=== PATIENT | female | born 1965 | race Caucasian/White ===

== ENCOUNTER 2017-06-06 12:55 | Inpatient (IN) | payer OTHER ==
[~2017-06-06] VITALS: Ht 160 cm; Wt 91.2 kg
[2017-06-06] MEDS ORDERED: ATIVAN1 M1 PO (13:08)
[2017-06-06] MEDS ORDERED: BENICAR HCT 201 EACH PO (13:08)
[2017-06-06] MEDS ORDERED: ATORVASTATIN CA20 M1 PO (13:09)
[2017-06-06] MEDS ORDERED: AMOXICILLIN500 M2 PO (13:10)
[2017-06-06] MEDS ORDERED: AUGMENTIN 875-1 EACH PO (13:11)
[2017-06-06] MEDS ORDERED: METFORMIN HCL500 M4 PO (13:12)
--- NOTE | 2017-06-06 13:12 | ED GENERAL ADULT ---
History of Present Illness General Chief Complaint: General Adult Stated Complaint: SIB FOR HIGH BLOODSUGAR Source: patient Exam Limitations: no limitations Vital Signs & Intake/Output Vital Signs & Intake/Output Vital Signs Date Time Temp Pulse Resp B/P B/P Pulse O2 O2 Flow FiO2 Mean Ox Delivery Rate 06/06 1723 97.1 85 20 102/52 97 Room Air 06/06 1704 97.7 89 18 98/53 100 Room Air 06/06 1550 96 20 132/60 100 Room Air 06/06 1501 98.0 95 20 139/67 100 Room Air 06/06 1257 97.8 108 20 119/80 94 Room Air Room Air Allergies Coded Allergies: No Known Allergies (06/06/17) Reconcile Medications Amoxicillin 500 MG CAPSULE 1 CAP PO AD ABX (Reported) Amoxicillin/Potassium Clav (Augmentin 875-125 Tablet) 875 MG-125 MG TABLET 1 TAB PO AD ABX (Reported) Atorvastatin Calcium 20 MG TABLET 1 TAB PO DAILY CHOLESTEROL (Reported) LORazepam (Ativan) 1 MG TAB 0.5 TAB PO QAM ANXIETY (Reported) Metformin HCl (Metformin HCl ER) 500 MG TAB.ER.24H 1 TAB PO QPM DM (Reported) Olmesartan/Hydrochlorothiazide (Benicar Hct 20-12.5 MG Tablet) 20 MG-12.5 MG TABLET 1 TAB PO DAILY BP (Reported) Triage Note: PT TO ED WITH HIGH BLOOD SUGARS, TAKES METFORMIN 500MG DAILY "SOMETIMES I FORGET". PT RECENTLY DIAGNOSED WITH STREP THROAT TAKING AMOXICILLIN "I STOPPED TAKING IT BECAUSE IT WAS BOTHERING MY STOMACH". ACCUCHECK AT TRIAGE: >500 Triage Nurses Notes Reviewed? yes Onset: Gradual Duration: getting worse Timing: recent history Injury Environment: home Severity: severe Severity Numbers: 7 HPI: Patient is a 51-year-old female with a past medical history of diabetes hypertension anxiety who presents emergency room with concerns of noncompliance WITH metformin and elevated blood sugar where patient states that yesterday blood sugar was noted to be over 500 patient has been complaining of a one-week history of generalized weakness and fatigue increased thirst headaches blurred vision and shortness of breath. Patient does state that earlier this week she was diagnosed with strep PHAR where she was given amoxicillin however patient had upset stomach and diarrhea with this medication and only took the medication for approximately 2-3 days, throat still is hurting per patient. Patient has symptoms of persistent nausea and intermittent episodes of vomiting (Blu Vivar) Past History Travel History Traveled to [place] past 21 day No Medical History Any Pertinent Medical History? 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 No (Blu Vivar) Review of Systems Review of Systems Constitutional: Reports: see HPI, malaise, weakness. EENTM: Reports: blurred vision. Respiratory: Reports: see HPI, short of breath. Cardiovascular: Denies: chest pain. GI: Reports: see HPI, nausea, vomiting. Denies: abdominal pain. Genitourinary: Reports: see HPI. Musculoskeletal: Reports: no symptoms. Skin: Reports: no symptoms. Neurological/Psychological: Reports: see HPI. Hematologic/Endocrine: Reports: see HPI, polyuria, polydipsia. Immunologic/Allergic: Reports: no symptoms. All Other Systems: Reviewed and Negative (Blu Vivar) Physical Exam Physical Exam General Appearance: no apparent distress, lethargic Head: atraumatic Eyes: Bilateral: normal appearance, PERRL, EOMI. Ears, Nose, Throat: pharyngeal erythema, tonsillar exudate, tonsillar swelling Neck: normal inspection Respiratory: normal breath sounds Cardiovascular: regular rate/rhythm Peripheral Pulses: 2+ radial (R) Gastrointestinal: normal bowel sounds, soft, non-tender Extremities: normal inspection, normal capillary refill Skin: intact, normal color, warm/dry Core Measures ACS in differential dx? Yes CVA/TIA Diagnosis: No Sepsis Present: No Sepsis Focused Exam Completed? No (Blu Vivar) Progress Differential Diagnoses I considered the following diagnoses in my evaluation of the patient: [DKA, HHS, hyperglycemia pharyngitis peritonsillar abscess sepsis polysubstance abuse] Plan of Care: Orders Procedure Date/time Status Lab Add-on Test 06/07 050 Active THYROID STIMULATING HORMONE 06/07 050 Active LIPID PANEL 06/07 050 Active ICU LAB BUNDLE 06/07 0500 Active FREE T4 06/07 0500 Active C-PEPTIDE Ref$ 06/07 0500 Active CBC WITHOUT DIFFERENTIAL 06/07 0500 Active THYROID ANTIBODY PANEL 06/07 0500 Active ICU LAB BUNDLE 06/07 0005 Active Nothing by Mouth 06/06 D Active Nursing Misc 06/06 1749 Active Wound Care/Dressing 06/06 1721 Complete Weight 06/06 1721 Active VTE Mechanical Prophylaxis 06/06 1721 Complete Vital Signs 06/06 1721 Complete Turn and Reposition 06/06 1721 Complete Drains/Tubes 06/06 1721 Complete Teach/Educate 06/06 1721 Active Skin Integrity Protocol 06/06 1721 Active Skin/Pressure Ulcer Assess (Sk 06/06 1721 Active Precautions 06/06 1721 Active Pain Treatment and Response 06/06 1721 Active Nutritional Intake, Monitor 06/06 1721 Active Isolation 06/06 1721 Active CIWA 06/06 1721 Complete Patient Care Conference 06/06 1721 Active Activity/Ambulation 06/06 1721 Active ICU LAB BUNDLE 06/06 1709 Complete VRE ACTIVE SURVIELLANCE 06/06 1700 Active ACTIVE SURVEILLANCE NARES 06/06 1700 Active LACTIC ACID 06/06 1617 Complete Pathway - chart 06/06 1516 Active House Staff 06/06 1516 Active Code Status 06/06 1516 Active Admit to inpatient 06/06 1456 Active Patient Data 06/06 1455 Active Add-on Test (ER Only) 06/06 1341 Active GLYCOSYLATED HGB 06/06 1329 Active MIXED VENOUS BLOOD GAS (GEN) 06/06 1317 Active URINE DRUG SCREEN FOR ER ONLY 06/06 1317 Active URINALYSIS 06/06 1317 Complete TROPONIN LEVEL 06/06 1317 Active LACTIC ACID 06/06 1317 Active D-DIMER 06/06 1317 Complete COMPREHENSIVE METABOLIC PANEL 06/06 1317 Active CBC WITHOUT DIFFERENTIAL 06/06 1317 Complete ACETONE 06/06 1317 Active EKG 06/06 1317 Active FingerStick- Glucose 06/06 1300 Active Lab Add-on Test 06/06 UNK Active VTE Mechanical Prophylaxis 06/06 UNK Active Vital Signs 06/06 UNK Active Intake & Output 06/06 UNK Active Current Medications Sig/[place] Start time Last Medication Dose Stop Time Status Admin Lorazepam 0.5 MG QAM 06/07 1000 AC (Ativan) Losartan Potassium 50 MG DAILY 04/02 1000 AC (Cozaar) Heparin Sodium 5,000 UNIT Q8 06/06 2200 AC (Porcine) Sodium Chloride 1,000 ML Q6H 06/06 1800 AC 06/06 (Normal Saline 0.9%) 1814 Acetaminophen 1,000 MG Q6P PRN 06/06 1515 AC (Ofirmev) Laboratory Tests 06/06/17 1745: Methadone Screen Pending, Barbiturate Screen Pending, Ur Phencyclidine Scrn Pending, Amphetamines Screen Pending, U Benzodiazepines Scrn Pending, Urine Cocaine Screen Pending, Urine Cannabis Screen Pending, Urinalysis LIGHT H, Urine Color YEL, Urine Clarity CLEAR, Urine pH 6.0, Ur Specific Holden 1.025, Urine Protein 100 H, Urine Ketones >=80, Urine Nitrite NEG, Urine Bilirubin NEG @ICTO, Urine Urobilinogen 0.2, Ur Leukocyte Esterase NEG, Ur Microscopic SEDIMENT EXAMINED, Urine RBC 3-5, Urine WBC 3-5 H, Ur Epithelial Cells MANY H, Urine Bacteria MANY H, Hyaline Casts 5-10 H, Granular Casts RARE H, Urine Mucus MANY H, Urine Hemoglobin MOD H, Urine Glucose >=1000 H 06/06/17 1700: Anion Gap 25 H, Estimated GFR 47 L, Glucose 410 H, Calcium 9.0, Phosphorus 2.6, Magnesium 2.3, Total Bilirubin 0.5, AST 19, ALT 71 H, Albumin 3.5 06/06/17 1640: Lactic Acid 1.7 06/06/17 1420: Bicarbonate Actual 6 L, Mixed VBG pH 7.01 L, Mixed VBG pCO2 22 L, Mixed VBG O2 Saturation 39, Carboxyhemoglobin 1.4 L 06/06/17 1403: D-Dimer High Sensitivty 229 06/06/17 1345: D-Dimer High Sensitivty Cancelled 06/06/17 1329: Anion Gap ND, Estimated GFR 28 L, BUN/Creatinine Ratio 16.3, Glucose 691 *H, Hemoglobin A1c Pending, Lactic Acid 3.4 H, Calcium 10.4 H, Total Bilirubin 0.7 , AST 32, ALT 91 H, Alkaline Phosphatase 143 H, Troponin I < 0.01, Total Protein 7.6, Albumin 4.6, Globulin 3.0, Albumin/Globulin Ratio 1.5, CBC w Diff MAN DIFF ORDERED, RBC 5.25, MCV 96.8, MCH 32.0 H, MCHC 33.1, RDW 13.4, MPV 10.3 , Gran % 85.0 H, Lymphocytes % 8.9 L, Monocytes % 5.9, Eosinophils % 0, Basophils % 0.2, Absolute Granulocytes 10.7 H, Absolute Lymphocytes 1.1 L, Absolute Monocytes 0.7 H, Absolute Eosinophils 0, Absolute Basophils 0, Platelet Estimate VERIFIED BY SMEAR, Normocytic RBCs VERIFIED, Normochromic RBCs VERIFIED, Acetone Level POSITIVE AT 1:16 DIL Microbiology 06/06 1745 GI: Surveillance Culture - RECD 06/06 171 UPPER RESP: Surveillance Culture - RECD Initial glucose reading by nursing staff fingerstick was over 500 IV fluids ordered ministered IV insulin was administered Patient was given azithromycin due to her noncompliance with the amoxicillin and the perceived strep pharyngitis diagnosis patient does have concerns of DKA patient was administered IV insulin fluid resuscitation and a insulin drip. Discussed admission with Dr. weller was aware and agrees that 6 ML of insulin per hour for the drip. Patient will be admitted to the ICU. Discussed admission with who is well spoke to the attending Discussed admission with the patient Diagnostic Imaging: Viewed by Me: Radiology Read, CT Scan. Radiology Impression: no acute abnormality Initial ED EKG: normal QRS complex, normal sinus rhythm, 96 bpm,nsr Comments: PATIENT: JOSEF POLO PRESENT AGE: 51 PATIENT ACCOUNT NO: [id number] : 65 LOCATION: [facility] ORDERING PHYSICIAN: Blu VELAZQUEZ SERVICE DATE: 06/06/17 EXAM TYPE: RAD - XRY-PORTABLE CHEST XRAY EXAMINATION: XR PORTABLE CHEST CLINICAL INFORMATION: Shortness of breath. COMPARISON: None TECHNIQUE: Portable frontal view of the chest was obtained. FINDINGS: The cardiomediastinal silhouette is within normal limits in size. Lungs bilaterally are symmetrically expanded and clear. Lobulation of both hemidiaphragms is seen. No focal consolidation, effusion or pneumothorax is seen. Bony structures are unremarkable. IMPRESSION: Unremarkable examination. DICTATED BY: Dee Roy MD DATE/TIME DICTATED:06/06/171642 PUPPET MAKER:JESSE PATIENT: JOSEF POLO PRESENT AGE: 51 PATIENT ACCOUNT NO: [id number] : 65 LOCATION: [facility] ORDERING PHYSICIAN: Blu VELAZQUEZ SERVICE DATE: 06/06/17 EXAM TYPE: CAT - CT ABD & PELVIS W/O IV CONTRAS EXAMINATION: CT ABDOMEN AND PELVIS WITHOUT CONTRAST CLINICAL INFORMATION: 51-year-old woman with nausea and vomiting. COMPARISON: None TECHNIQUE: Multidetector volumetric imaging was performed from the superior aspect of the liver through the pubic symphysis. Sagittal and coronal reformatted images were obtained on the technologist's workstation. DLP: 656 mGy-cm FINDINGS: The lung bases are clear. The liver, spleen, pancreas, adrenals, and kidneys are normal in their noncontrast appearance. The partially contracted gallbladder is filled with hyperdense material, presumably sludge. Nondilated loops of large and small bowel are unremarkable in appearance. The appendix and terminal ileum are not inflamed. The uterus, adnexal structures, and bladder are normal in appearance. IMPRESSION: No acute intra-abdominal process is seen to explain the patient's symptoms. Probable sludge filled gallbladder. DICTATED BY: Sepideh Mancilla MD DATE/TIME DICTATED:06/06/171552 PUPPET MAKER:JESSE (Blu Vivar) Departure Departure Disposition: STILL A PATIENT Condition: Critical Clinical Impression Primary Impression: DKA (diabetic ketoacidoses) Secondary Impressions: ROBERTA (acute kidney injury), Streptococcal pharyngitis Departure Forms: Customer Survey General Discharge Information Admission Note Spoke With: Sil WETZEL,Amialberto Documentation of Exam: Documentation of any treatments & extenuating circumstances including Concerns Regarding Discharge (functional status, medication knowledge or non-compliance, living conditions, etc.) that warrant an admission rather than observation: (Blu Vivar) Admission Note Documentation of Exam: Documentation of any treatments & extenuating circumstances including Concerns Regarding Discharge (functional status, medication knowledge or non-compliance, living conditions, etc.) that warrant an admission rather than observation: [The patient needs admission for ICU level care, insulin drip, endocrinology consult, IV fluids.] PA/APPLICATION ANALYST Co-Sign Statement Statement: ED Attending supervision documentation- [x] I saw and evaluated the patient. I have also reviewed all the pertinent lab results and diagnostic results. I agree with the findings and the plan of care as documented in the PA's/APPLICATION ANALYST's documentation. [] I have reviewed the ED Record and agree with the PA's/APPLICATION ANALYST's documentation. [] Additions or exceptions (if any) to the PAs/APPLICATION ANALYST's note and plan are summarized below: [] 06/06/17 I saw and personally evaluated the patient. She is a 51-year-old female with a history of adult-onset diabetes. Now she presents with several days of first a sore throat and then vomiting. She was found to be in profound diabetic ketoacidosis. She denies any abdominal pain. I spoke with Dr. Rodriguez who can be reached at [phone] (Sebastian Garcia DO) Critical Care Note Critical Care Note Critical Care Time: 75-104 min (Ema VELAZQUEZ,Blu)
[2017-06-06 13:42] LABS: ABSOLUTE BASOPHIL COUNT 0 /CUMM (0.0-0.2); ABSOLUTE EOSINOPHIL COUNT 0 /CUMM (0.0-0.7); ABSOLUTE GRANULOCYTE CT 10.7 /CUMM (1.4-6.5); ABSOLUTE LYMPH COUNT 1.1 /CUMM (1.2-3.4); ABSOLUTE MONOCYTE COUNT 0.7 /CUMM (0.10-0.60); BASOPHIL % 0.2 % (0.0-2.0); EOSINOPHIL % 0 % (0-5); HEMATOCRIT 50.8 % (37-47); MEAN CORPUSCULAR HGB CONC 33.1 G/DL (33.0-37.0); MEAN CORPUSCULAR VOLUME 96.8 FL (81.0-99.0); MEAN PLATELET VOLUME 10.3 FL (7.4-10.4); PLATELET COUNT 322 /CUMM (130-400); RBC DISTRIBUTION WIDTH 13.4 % (11.5-14.5); RED BLOOD CELL CT 5.25 /CUMM (4.20-5.40); WHITE BLOOD CELL COUNT 12.6 /CUMM (4.8-10.8)
--- NOTE | 2017-06-06 15:00 | History & Physical ---
Vianey WETZEL,Daniel 06/06/17 4809: General Information and HPI MD Statement: I have seen and personally examined JOSEF POLO and documented this H&P. The patient is a 51 year old F who was referred by her doctor for DKA. Source of Information: patient Exam Limitations: no limitations History of Present Illness: 51-year-old female with past medical history of diabetes (non-compliant), ? abnormal thyroid hormones, hypertension, anxiety, currently being treated for streptococcal pharyngitis with amoxicillin is here after recording high blood sugar levels at home. According to the patient, in the past few days (Wednesday) she was having sore throat and was diagnosed with streptococcal pharyngitis, initially being treated with Augmentin, which upset her stomach- heartburn, nausea but no vomiting, which was later suggested to amoxicillin which she did NOT take. She noted being very thirsty this past week and was drinking water a lot more than usual. She also admitted that she was noncompliant with her diabetes medication which is metformin. Her blood sugar numbers were more than 500 yesterday, and she continued to feel worsening of her symptoms, that brought her to the emergency department today. She still has throat, pain on swallowing, but no hoarseness of voice. She denies fever, chills, chest pain, palpitation, shortness of breath, cough, leg swelling, dizziness, abdominal pain, changes in bowel or bladder habit although she said she got some yeast infection after starting the antibiotic for which she took a dose of Diflucan. Update obtained from the patient's doctor Pepe Marques MD over phone: Patient's doctor had called us after the admission, to get an update about the patient's situation as well as to provide more information. According to the doctor, the patient was in her usual state of health until afternoon, when she was working a long day and towards the end of the day she complained of sore throat, was examined to have acute pustular pharyngitis, and was prescribed amoxicillin clavulanate, which she apparently took it that night, Wednesday, and on Wednesday night he got a call from her saying that the patient was nauseous, had low appetite, and her sugar was 521 at which point he had asked the patient to go to the emergency. Patient apparently had refused according to the doctor, giving reasons that Mary was coming. But today, her blood sugar was still very high, thus she had to come to the emergency department. He also requested blood cultures and urine cultures be drawn even though she had been exposed to antibiotics, as "she is not a poorly controlled diabetic or someone who would otherwise get DKA". 1830 hrs Allergies/Medications Allergies: Coded Allergies: No Known Allergies (06/06/17) Home Med list Amoxicillin 500 MG CAPSULE 1 CAP PO AD ABX (Reported) Amoxicillin/Potassium Clav (Augmentin 875-125 Tablet) 875 MG-125 MG TABLET 1 TAB PO AD ABX (Reported) Atorvastatin Calcium 20 MG TABLET 1 TAB PO DAILY CHOLESTEROL (Reported) LORazepam (Ativan) 1 MG TAB 0.5 TAB PO QAM ANXIETY (Reported) Metformin HCl (Metformin HCl ER) 500 MG TAB.ER.24H 1 TAB PO QPM DM (Reported) Olmesartan/Hydrochlorothiazide (Benicar Hct 20-12.5 MG Tablet) 20 MG-12.5 MG TABLET 1 TAB PO DAILY BP (Reported) Compliance With Home Meds: POOR Past History Travel History Traveled to [place] past 21 day No Medical History Neurological: NONE EENT: NONE Cardiovascular: hypertension Respiratory: NONE Gastrointestinal: NONE Hepatic: NONE Renal: NONE Musculoskeletal: NONE Psychiatric: anxiety Endocrine: diabetes Blood Disorders: NONE 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 Home Who Do You Live With? spouse Services at Home: None Primary Language: Mongolian ETOH Use: denies use Illicit Drug Use: denies illicit drug use Functional Ability ADLs Independent: dressing, eating, toileting, bathing. Ambulation: independent IADLs Independent: shopping, housework, finances, food prep, telephone, transportation , medication admin. Review of Systems Review of Systems Constitutional: Reports: see HPI. EENTM: Reports: see HPI, throat pain. Cardiovascular: Reports: no symptoms. Respiratory: Reports: no symptoms. GI: Reports: see HPI, nausea, vomiting. Denies: abdominal pain. Genitourinary: Reports: no symptoms. Musculoskeletal: Reports: no symptoms. Skin: Reports: no symptoms. Neurological/Psychological: Reports: no symptoms. Hematologic/Endocrine: Reports: no symptoms. All Other Systems: Reviewed and Negative Exam & Diagnostic Data Last 24 Hrs of Vital Signs/I&O Vital Signs Date Time Temp Pulse Resp B/P B/P Pulse O2 O2 Flow FiO2 Mean Ox Delivery Rate 06/06 1257 97.8 108 20 119/80 94 Room Air Room Air Intake & Output 06/06 1600 06/06 0800 06/06 0000 Intake Total 2000 Output Total Balance 2000 Intake, IV 2000 Patient 86.183 kg Weight Weight Reported by Patient Measurement Method Physical Exam General Appearance Alert, Oriented X3, Cooperative, No Acute Distress, obese Skin No Rashes, No Breakdown, No Significant Lesion Skin Temp/Moisture Exam: Warm/Dry Sepsis Skin Exam (color): Normal for Ethnicity HEENT Atraumatic, PERRLA, EOMI, dry mucosa Neck Supple, No JVD, No thryomegaly Cardiovascular Regular Rate, Normal S1, Normal S2, No Murmurs Neurological Normal Speech, Strength at 5/5 X4 Ext, Normal Tone, Sensation Intact, Cranial Nerves 3-12 NL, Reflexes 2+, gait not examined Sepsis Peripheral Pulse Location: Posterior Tibialis Sepsis Peripheral Pulse Exam: Normal Sepsis Cap Refill Exam: <2 Sec Last 24 Hrs of Labs/Zack: Laboratory Tests 06/06/17 1420: Bicarbonate Actual 6 L, Mixed VBG pH 7.01 L, Mixed VBG pCO2 22 L, Mixed VBG O2 Saturation 39, Carboxyhemoglobin 1.4 L 06/06/17 1403: D-Dimer High Sensitivty 229 06/06/17 1345: D-Dimer High Sensitivty Cancelled 06/06/17 1329: Anion Gap ND, Estimated GFR 28 L, BUN/Creatinine Ratio 16.3, Glucose 691 *H, Lactic Acid 3.4 H, Calcium 10.4 H, Total Bilirubin 0.7, AST 32, ALT 91 H, Alkaline Phosphatase 143 H, Troponin I < 0.01, Total Protein 7.6, Albumin 4.6, Globulin 3.0, Albumin/Globulin Ratio 1.5, CBC w Diff MAN DIFF ORDERED, RBC 5.25, MCV 96.8, MCH 32.0 H, MCHC 33.1, RDW 13.4, MPV 10.3, Gran % 85.0 H, Lymphocytes % 8.9 L, Monocytes % 5.9, Eosinophils % 0, Basophils % 0.2, Absolute Granulocytes 10.7 H, Absolute Lymphocytes 1.1 L, Absolute Monocytes 0.7 H, Absolute Eosinophils 0, Absolute Basophils 0, Platelet Estimate VERIFIED BY SMEAR, Normocytic RBCs VERIFIED, Normochromic RBCs VERIFIED, Acetone Level POSITIVE AT 1:16 DIL Assessment/Plan Assessment: 51-year-old female with past medical history of diabetes (non-compliant), ? abnormal thyroid hormones, hypertension, anxiety, currently being treated for streptococcal pharyngitis with amoxicillin is here after recording high blood sugar levels at home. She was found to be in diabetic ketoacidosis in the emergency department, thus the initial plan/protocol was already started while in the ED. She is now currently being admitted in the ICU for management of following issues: #Diabetic ketoacidosis, in the setting of non-compliance and acute infection Patient's diabetes seems to be uncontrolled, andis noncompliant, and in the setting of acute infection/pharyngitis, her clinical picture is suggestive of diabetic ketoacidosis. She received 3 L of normal saline in the emergency department, the third bag running currently. She also has been receiving insulin and normal saline infusion. * ICU admission * Regular close monitoring of vitals, urine output, symptoms * Continue insulin infusion for now until sugar level is less than 250 * Will change her insulin drip to subcutaneous insulin while allowing her to eat after that * We'll check her HbA1c today and insulin autoantibody tomorrow * Na is high so IV fluid of choice is half NS, and since K is low now so KCl has been added too. HCO3 is getting better, so will not supplement for now. #Hypernatremia, likely due to dehydration Normally with hyperglycemia, she will do hyponatremia is expected, but as in this case, likely due to dehydration the patient is presenting with hypernatremia, thus she will be allowed to have free water by mouth initially, and when her sugar level reaches less than 250 Will also be repeated in the form of D5W. #Abnormal thyroid functions, ruling out autoimmune conditions Patient had recently found out that her thyroid functions were abnormal in January 2017, along with her diagnosis of diabetes, but does not remember the type of abnormality ordered results of her test either. * Tomorrow morning, we will repeat her thyroid function test, thyroid antibodies * We will also check for C-peptide, and SHERI 65 levels in the morning #History of hypertension Will continue her antihypertensive medications while watching her blood pressure closely. HCTZ on hold for now, can restart if necessary. #History of anxiety Will continue her antianxiety medications. #Nicotine patch 7mg daily, as patient is a daily smoker and was having cravings. #Diet: Can have free water only, formally NPO ordered #DVT ppx: SQ Heparin #Code status: Full code As Ranked By This Provider Problem List: 1. DKA (diabetic ketoacidoses) 2. Hypernatremia Core Measures/Misc (11/22) Acute Coronary Syndrome ACS Diagnosis: No Congestive Heart Failure Congestive Heart Failure Diagnosis No Cerebrovascular Accident CVA/TIA Diagnosis: No VTE (View Protocol) VTE Risk Factors Age>40 No Mechanical VTE Prophylaxis d/t N/A MechProphylax Ordered No VTE Pharm Prophylaxis d/t NA PharmProphylax ordered Sepsis (View protocol) Sepsis Present: No Sil WETZEL,[facility] 06/07/17 0745: Attending MD Review Statement Attending Statement Attending MD Statement: examined this patient, discuss w/resident/PA/HEAD GRINDER, agreed w/resident/PA/HEAD GRINDER, reviewed EMR data (avail), discussed with nursing Attending Assessment/Plan: Case discussed with the team, agree with A/P as oulined by the resident. Appreicate endo eval. Pt will likely need regular outpt follow up appt
--- NOTE | 2017-06-06 15:59 | CT SCAN REPORT ---
EXAMINATION: CT ABDOMEN AND PELVIS WITHOUT CONTRAST CLINICAL INFORMATION: 51-year-old woman with nausea and vomiting. COMPARISON: None TECHNIQUE: Multidetector volumetric imaging was performed from the superior aspect of the liver through the pubic symphysis. Sagittal and coronal reformatted images were obtained on the technologist's workstation. DLP: 656 mGy-cm FINDINGS: The lung bases are clear. The liver, spleen, pancreas, adrenals, and kidneys are normal in their noncontrast appearance. The partially contracted gallbladder is filled with hyperdense material, presumably sludge. Nondilated loops of large and small bowel are unremarkable in appearance. The appendix and terminal ileum are not inflamed. The uterus, adnexal structures, and bladder are normal in appearance. IMPRESSION: No acute intra-abdominal process is seen to explain the patient's symptoms. Probable sludge filled gallbladder.
--- NOTE | 2017-06-06 16:52 | Admission Certification ---
Admission Certification Certification Statement - As attending physician, I certify that at the time of - admission, based on clinical presentation, severity of - symptoms, need for further diagnostic testing and - therapeutic interventions, and risk of adverse outcomes - without in-hospital treatment, in my clinical assessment, - this patient requires an acute hospital stay for a minimum - of two nights or longer. I have also considered psychsocial - factors such as support system, advanced age, financial - issues, cognitive issues, and failed out-patient treatments, - past re-admission history, safety of patient, and lack of - compliance as applicable. Specific rationale supporting this admission is: DKA
--- NOTE | 2017-06-06 17:06 | RADIOLOGY REPORT ---
EXAMINATION: XR PORTABLE CHEST CLINICAL INFORMATION: Shortness of breath. COMPARISON: None TECHNIQUE: Portable frontal view of the chest was obtained. FINDINGS: The cardiomediastinal silhouette is within normal limits in size. Lungs bilaterally are symmetrically expanded and clear. Lobulation of both hemidiaphragms is seen. No focal consolidation, effusion or pneumothorax is seen. Bony structures are unremarkable. IMPRESSION: Unremarkable examination.
[2017-06-06 17:23] VITALS: BP 102/52
--- NOTE | 2017-06-06 18:31 | Event Note ---
Event Note Event Note: I spoke with Dr Wilkes regarding the repeat lab values with sodium of 151, potassium 3.5, bicarbonate 9, blood sugar by fingerstick method 350, for which she suggested replacing the current IV fluid from normal saline to half normal saline with additional 20 meq potassium chloride running at 150 mL per hour. Also to repeat ICU bundle in 3 hours, and the rest as planned earlier, that is, continue with IV insulin drip at 6 units per hour, and change IV insulin drip to subcutaneous form after the blood sugar reaches 250 or lower and/or anion gap closes. Meds ordered as discussed and nursing staff notified too.
--- NOTE | 2017-06-06 21:55 | Cons- Endocrinology ---
General Information and HPI Consulting Request Date of Consult: 06/06/17 Requested By: ICU team Reason for Consult: Evaluation and management of DKA. Source of Information: patient, old records Exam Limitations: no limitations History of Present Illness: 51 y/o female who was diagnosed with DM type 2 and abnormal TFT in 01/2017, was prescribed with metfomin. But she hasn't been compliance with the treatment, presented with glucose level of 691, Cr 1.9, HCO2 < 5, PH 7.01 and acetone positive at 1:16 dilution. She was having URI over past several days and was treated with antibiotics. She was put on NS bolus and iv insulin drip at 6 units per hour. Patient feels thirsty and would like to drink ice water. Her father has diabetes and has been on oral antidiabetic medications. Allergies/Medications Allergies: Coded Allergies: No Known Allergies (06/06/17) Home Med List: Amoxicillin 500 MG CAPSULE 1 CAP PO AD ABX (Reported) Amoxicillin/Potassium Clav (Augmentin 875-125 Tablet) 875 MG-125 MG TABLET 1 TAB PO AD ABX (Reported) Atorvastatin Calcium 20 MG TABLET 1 TAB PO DAILY CHOLESTEROL (Reported) LORazepam (Ativan) 1 MG TAB 0.5 TAB PO QAM ANXIETY (Reported) Metformin HCl (Metformin HCl ER) 500 MG TAB.ER.24H 1 TAB PO QPM DM (Reported) Olmesartan/Hydrochlorothiazide (Benicar Hct 20-12.5 MG Tablet) 20 MG-12.5 MG TABLET 1 TAB PO DAILY BP (Reported) Review of Systems Review of Systems Constitutional: Reports: see HPI, malaise, weakness. Cardiovascular: Denies: chest pain. Respiratory: Denies: short of breath. GI: Denies: abdominal pain. Genitourinary: Reports: dysuria, frequency. Hematologic/Endocrine: Reports: polyuria, polydipsia. 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 Home Who Do You Live With? spouse Services at Home: None Primary Language: Brazilian Smoking Status: Current Everyday Smoker ETOH Use: denies use Illicit Drug Use: denies illicit drug use Functional Ability ADLs Independent: dressing, eating, toileting, bathing. Ambulation: independent IADLs Independent: shopping, housework, finances, food prep, telephone, transportation , medication admin. Exam & Diagnostic Data Last 24 Hrs of Vital Signs/I&O Vital Signs Date Time Temp Pulse Resp B/P B/P Pulse O2 O2 Flow FiO2 Mean Ox Delivery Rate 06/06 1723 97.1 85 20 102/52 97 Room Air 06/06 1704 97.7 89 18 98/53 100 Room Air 06/06 1550 96 20 132/60 100 Room Air 06/06 1501 98.0 95 20 139/67 100 Room Air 06/06 1257 97.8 108 20 119/80 94 Room Air Room Air Intake & Output 06/06 1600 06/06 0800 06/06 0000 Intake Total 2000 Output Total Balance 2000 Intake, IV 2000 Patient 190 lb Weight Weight Reported by Patient Measurement Method Physical Exam General Appearance: cachetic, dry oral mucosa Neck: normal inspection, no significant thyromegaly Respiratory: lungs clear Cardiovascular: tachycardia Gastrointestinal: soft, non-tender Extremities: no edema Labs/Zack Results: Laboratory Tests 06/06 06/06 06/06 06/06 2120 1745 1700 1640 Chemistry Sodium (137 - 145 mmol/L) 150 H 151 H Potassium (3.5 - 5.1 mmol/L) 3.8 3.6 Chloride (98 - 107 mmol/L) 120 H 117 H Carbon Dioxide (22 - 30 mmol/L) 11 L 9 *L Anion Gap (5 - 16) 18 H 25 H BUN (7 - 17 mg/dL) 33 H 32 H Creatinine (0.5 - 1.0 mg/dL) 0.9 1.2 H Estimated GFR (>60 ml/min) > 60 47 L Glucose (65 - 99 mg/dL) 223 H 410 H Lactic Acid (0.7 - 2.1 mmol/L) 1.7 Calcium (8.4 - 10.2 mg/dL) 8.3 L 9.0 Phosphorus (2.5 - 4.5 mg/dL) 2.0 L 2.6 Magnesium (1.6 - 2.3 mg/dL) 2.1 2.3 Total Bilirubin (0.2 - 1.3 mg/dL) 0.5 0.5 AST (14 - 36 U/L) 14 19 ALT (9 - 52 U/L) 65 H 71 H Albumin (3.5 - 5.0 g/dL) 2.8 L 3.5 Toxicology Urine Opiates Screen (>2000 NG/ML) < 100 Methadone Screen (>300 NG/ML) < 40 Barbiturate Screen (>200 NG/ML) < 60 Ur Phencyclidine Scrn (>25 NG/ML) < 6.00 Amphetamines Screen (>1000 NG/ML) < 100 U Benzodiazepines Scrn (>200 NG/ML) < 85 Urine Cocaine Screen (>300 NG/ML) < 50 Urine Cannabis Screen (>50 NG/ML) < 5.00 Urines Urinalysis LIGHT H Urine Color (YEL,AMB,STR) YEL Urine Clarity (CLEAR) CLEAR Urine pH (5.0 - 8.0) 6.0 Ur Specific [place]o (1.001 - 1.035) 1.025 Urine Protein (NEG,<30 MG/DL) 100 H Urine Ketones (NEG) >=80 Urine Nitrite (NEG) NEG Urine Bilirubin (NEG) NEG@ICTO Urine Urobilinogen (0.1 - 1.0 EU/dl) 0.2 Ur Leukocyte Esterase (NEG) NEG Ur Microscopic SEDIMENT EXAMINED Urine RBC (0 - 5 /HPF) 3-5 Urine WBC (0 - 2 /HPF) 3-5 H Ur Epithelial Cells (NONE,FEW) MANY H Urine Bacteria (NEG/NONE) MANY H Hyaline Casts (0/LPF) 5-10 H Granular Casts (NONE /LPF) RARE H Urine Mucus (FEW,NONE) MANY H Urine Hemoglobin (NEG) MOD H Urine Glucose (N MG/DL) >=1000 H 06/06 06/06 06/06 1420 1403 1345 Blood Gas Bicarbonate Actual (22 - 26 MEQ/L) 6 L Mixed VBG pH (7.31 - 7.41 PH) 7.01 L Mixed VBG pCO2 (41 - 51 TORR) 22 L Mixed VBG O2 Saturation (35 - 45 TORR) 39 Carboxyhemoglobin (1.5 - 5.0 %) 1.4 L Coagulation D-Dimer High Sensitivty (0 - 243 ng/ml) 229 Cancelled 06/06 1329 Chemistry Sodium (137 - 145 mmol/L) 147 H Potassium (3.5 - 5.1 mmol/L) 4.5 Chloride (98 - 107 mmol/L) 105 Carbon Dioxide (22 - 30 mmol/L) < 5 *L Anion Gap (5 - 16) ND BUN (7 - 17 mg/dL) 31 H Creatinine (0.5 - 1.0 mg/dL) 1.9 H Estimated GFR (>60 ml/min) 28 L BUN/Creatinine Ratio (7 - 25 %) 16.3 Glucose (65 - 99 mg/dL) 691 *H Hemoglobin A1c (4.2 - 5.8 %) Pending Lactic Acid (0.7 - 2.1 mmol/L) 3.4 H Calcium (8.4 - 10.2 mg/dL) 10.4 H Total Bilirubin (0.2 - 1.3 mg/dL) 0.7 AST (14 - 36 U/L) 32 ALT (9 - 52 U/L) 91 H Alkaline Phosphatase (<127 U/L) 143 H Troponin I (< 0.11 ng/ml) < 0.01 Total Protein (6.3 - 8.2 g/dL) 7.6 Albumin (3.5 - 5.0 g/dL) 4.6 Globulin (1.9 - 4.2 gm/dL) 3.0 Albumin/Globulin Ratio (1.1 - 2.2 %) 1.5 Hematology CBC w Diff MAN DIFF ORDERED WBC (4.8 - 10.8 /CUMM) 12.6 H RBC (4.20 - 5.40 /CUMM) 5.25 Hgb (12.0 - 16.0 G/DL) 16.8 H Hct (37 - 47 %) 50.8 H MCV (81.0 - 99.0 FL) 96.8 MCH (27.0 - 31.0 PG) 32.0 H MCHC (33.0 - 37.0 G/DL) 33.1 RDW (11.5 - 14.5 %) 13.4 Plt Count (130 - 400 /CUMM) 322 MPV (7.4 - 10.4 FL) 10.3 Gran % (42.2 - 75.2 %) 85.0 H Lymphocytes % (20.5 - 51.1 %) 8.9 L Monocytes % (1.7 - 9.3 %) 5.9 Eosinophils % (0 - 5 %) 0 Basophils % (0.0 - 2.0 %) 0.2 Absolute Granulocytes (1.4 - 6.5 /CUMM) 10.7 H Absolute Lymphocytes (1.2 - 3.4 /CUMM) 1.1 L Absolute Monocytes (0.10 - 0.60 /CUMM) 0.7 H Absolute Eosinophils (0.0 - 0.7 /CUMM) 0 Absolute Basophils (0.0 - 0.2 /CUMM) 0 Platelet Estimate (ADEQUATE) VERIFIED BY SMEAR Normocytic RBCs VERIFIED Normochromic RBCs VERIFIED Toxicology Acetone Level (NEGATIVE) POSITIVE AT 1:16 DIL Assessment/Plan Assessment/Plan 51 y/o female who was diagnosed with DM type 2 and abnormal TFT in 01/2017, was prescribed with metfomin. But she hasn't been compliance with the treatment, was having URI over past several days and was treated with antibiotics, and presented with DKA with glucose level of 691, Cr 1.9, HCO2 < 5, PH 7.01 and acetone positive at 1:16 dilution. Plan: 1. continue insulin drip; monitor FSG every one hour; 2. as her glucose level has been less than 250 and sodium is 150, I will change IVF to D51/2 NS with 20 KCL at 150 ml per hour; 3. encourage drinking more water; 4. monitor elecatrolytes every 3-6 hours; then adjust her IVF accordingly; 5. monitor IN and OUT; 6. check glucose, SHERI 65 antibody and C-peptide level tomorrow morning; 7. check TFT and thyroid antibody panel tomorrow am as well. any questions, please feel free to contact me. will follow. Consult Acknowledgment - Thank you for your consult request.
[2017-06-07] VITALS: BP 90/48
[2017-06-07 04:19] LABS: ABSOLUTE BASOPHIL COUNT 0 /CUMM (0.0-0.2); ABSOLUTE EOSINOPHIL COUNT 0 /CUMM (0.0-0.7); ABSOLUTE LYMPH COUNT 2.6 /CUMM (1.2-3.4); ABSOLUTE MONOCYTE COUNT 1.4 /CUMM (0.10-0.60); BASOPHIL % 0.3 % (0.0-2.0); MEAN PLATELET VOLUME 9.9 FL (7.4-10.4); RED BLOOD CELL CT 4.36 /CUMM (4.20-5.40)
[2017-06-07 04:28] LABS: ABSOLUTE GRANULOCYTE CT 9.8 /CUMM (1.4-6.5); EOSINOPHIL % 0.3 % (0-5); GRANULOCYTE % 70.8 % (42.2-75.2); MEAN CORPUSCULAR HGB 32.5 PG (27.0-31.0); MEAN CORPUSCULAR VOLUME 95.7 FL (81.0-99.0); PLATELET COUNT 221 /CUMM (130-400); WHITE BLOOD CELL COUNT 13.8 /CUMM (4.8-10.8)
[2017-06-07 04:33] LABS: HEMATOCRIT 41.8 % (37-47)
--- NOTE | 2017-06-07 07:48 | PN- Resident CRCU ---
Luciano WETZEL,Fabiana 06/07/17 0748: Subjective HPI/CRCU Issues: Overnight issues: Patient was admitted yesterday, requiring IV insulin drip. Patient reports lightheadedness, decreased appetite. Reports trouble swallowing. Patient states that it feels like food and water gets stuck in her throat. Patient states that it started a few days ago. Denies any pain with swallowing. Patient states that she has not had these symptoms before. Patient denies any chest pain, shortness of breath, abdominal pain, reports nausea has resolved. Denies any vomiting. Patient reports that she has not had a bowel movement for the past few days however attributes it to decreased appetite. The patient yesterday received Zofran and azithromycin. Patient had an EKG showing the of 491. Further potentially QTc prolongating agents were held including azithromycin. Vitals: MAXIMUM TEMPERATURE 98.6, heart rate 80s to 90s, sinus rhythm, respiration rate 18-20, blood pressure 115/54, saturating at 92-98% on room air Total intake: 2527, output: 900 Accu-Cheks: 361, 324, 280, 257, 215, 206, 210, 216, 202, 171, 156, 141, 159, 164 Patient this morning is on IV D5 half-normal saline at 1 50 mL/h and an IV insulin drip running at a rate of 4 units per hour Objective Vital Signs & I&O Last 8 Hrs of Vitals and I&O: Vital Signs Date Time Temp Pulse Resp B/P B/P Pulse O2 O2 Flow FiO2 Mean Ox Delivery Rate 06/07 08 98.2 84 17 110/62 93 Room Air 06/07 0000 98.6 84 20 90/48 95 Room Air Room Air 06/06 1723 97.1 85 20 102/52 97 Room Air 06/06 1704 97.7 89 18 98/53 100 Room Air 06/06 1550 96 20 132/60 100 Room Air Intake & Output 06/07 1600 06/07 0800 04 0000 Intake Total 1300 1438 1089 Output Total 600 700 400 Balance 700 738 689 Intake, IV 1000 1238 789 Intake, Oral 300 200 300 Number 0 0 0 Bowel Movements Output, Urine 600 700 400 Patient 197 lb Weight Weight Bed scale Measurement Method Intake & Output 06/07 1600 Intake Total 1300 Output Total 600 Balance 700 Intake, IV 1000 Intake, Oral 300 Number 0 Bowel Movements Output, Urine 600 Exam General Appearance: well developed/nourished, no apparent distress, alert, awake , comfortable Head: atraumatic, normal appearance Ears, Nose, Throat: pharyngeal erythema Neck: normal inspection, supple, full range of motion, trachea mid line, no thyromegaly Respiratory: normal breath sounds, chest non-tender, no respiratory distress, quiet respiration, lungs clear Cardiovascular: regular rate/rhythm Gastrointestinal: normal bowel sounds, soft, non-tender Extremities: normal inspection, no edema Cranial Nerves: normal hearing, normal speech, PERRL Skin: intact, warm/dry Current Medications: Current Medications Sig/[place] Start time Last Medication Dose Route Stop Time Status Admin Acetaminophen 1,000 MG Q6P PRN 06/06 1515 AC IV Azithromycin 250 MG DAILY 06/07 1449 AC PO Cephalexin 500 MG BID 06/07 1130 DC PO Fentanyl Citrate 1,000 MCG Q24H 06/07 0130 DC Dextrose/Water 250 ML IV Heparin Sodium 5,000 UNIT Q8 06/06 2200 AC 06/07 (Porcine) SC 1422 Insulin Aspart 0 Q4 06/07 0800 AC 06/07 SC 1421 Insulin Detemir 18 UNITS BID 06/07 1000 AC 06/07 SC 0758 Insulin Human Regular 100 UNIT ONCE ONE 06/07 0445 DC 06/07 Sodium Chloride 100 ML IV 06/07 0446 0553 Lorazepam 0.5 MG QAM 06/07 1000 AC PO Losartan Potassium 50 MG DAILY 06/07 1000 AC 06/07 PO 1050 Nicotine 7 MG DAILY 06/06 1915 AC 06/07 TOP 1050 Nystatin 5 ML 4 TIMES/DAY 06/07 1130 AC 06/07 PO 1422 Potassium Chloride 20 MEQ Q6 06/07 1800 AC Dextrose/Sodium 1,000 ML IV Chloride Potassium Chloride 20 MEQ CONTINOUS INFUSION 06/07 0700 CAN IV Potassium Chloride 20 MEQ ONCE ONE 06/07 0500 DC 06/07 PO 06/07 0501 0453 Potassium Chloride 20 MEQ Q6 06/06 2359 DC 06/07 Dextrose/Sodium 1,000 ML IV 06/07 0900 0553 Chloride Potassium Chloride 20 MEQ Q6 06/06 2359 DC 06/06 IV 2250 Potassium Chloride 20 MEQ CONTINOUS INFUSION 06/06 2245 CAN IV Potassium Chloride 20 MEQ CONTINOUS INFUSION 06/06 2130 CAN IV Potassium Chloride 20 MEQ Q6H 06/06 1830 DC 04/ Sodium Chloride 1,000 ML IV 1851 Sodium Chloride 1,000 ML Q6H 06/06 1800 DC 04/ IV 1814 Impression/Plan Impression/Problem List Impression: Patient is a 51-year-old female with past medical history of hypertension, anxiety, recently diagnosed diabetes with hemoglobin A1c of 7, placed on metformin and abnormal thyroid function in January 2017, recently diagnosed with streptococcal pharyngitis 3 days ago presenting this admission with hyperglycemia found to be in diabetic ketoacidosis with serum acetone and blood sugar of greater than 500 on admission. Patient was started on IV insulin drip and was admitted to the ICU for the following: Respiratory: Saturating well on room air in no acute respiratory distress. Infectious: Streptococcal pharyngitis- patient diagnosed prior to this admission and started on amoxicillin which she only took for one or 2 days due to GI upset. Patient received azithromycin 500 mg in the ED. However further antibiotics were held due to QTc prolongation. Repeat EKG today showed a QTc of 420. - Continue azithromycin 250 mg daily for 4 more days - Continue to monitor vitals and WBC Thrush - Started on nystatin suspension Cardiac: History of hypertension: Continue antihypertensives Heme: None Metabolic: Diabetic ketoacidosis in the setting of uncontrolled diabetes with hemoglobin A1c this admission of 13.7. DKA likely precipitated by recent streptococcal pharyngitis and noncompliance in the setting of increased insulin requirements. It is likely that patient has adult onset insulin-dependent diabetes. Anion gap has closed. Patient is no longer nauseous. Patient's sugars this morning were in the 150s to 200s. Patient's IV insulin drip was discontinued this morning. Patient received Levemir 18 units this morning. Patient is currently on D5 half -normal saline with 20 mEq of KCl at a rate of 150 mL per hour which was decreased to 125 ml per hour. - Continue Levemir 18 units twice a day - Continue D5 half normal saline with 20 mEq of KCl at 125 mL per hour - Encourage by mouth intake - Continue Accu-Cheks every 4 hours - Continue NovoLog sliding scale per endocrinology recommendations - Continue to monitor electrolytes - Follow-up emily antibody Damaris's thyroiditis Patient's TFTs were abnormal when she was diagnosed with diabetes in January 2017. There was suspicion for autoimmune process. Repeat TFT and thyroid peroxidase antibody this admission were normal however thyroglobulin antibody was elevated. 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 - close monitoring of TFT - thyroid ultrasound as outpatient - endocrinology consulted. appreciate recommendations Hypernatremia likely secondary to dehydration and decreased PO intake Sodium is improving with IV fluid hydration. - Continue D5 half normal saline - Continue to encourage by mouth intake - Continue to monitor electrolytes Ailmentary: Patient is currently on IV fluids. Patient has been drinking clear liquids. Started on a consistent carbohydrate 1 diet with restriction on concentrated sweets. Nephrology: ROBERTA- resolved Patient presented with elevated creatinine of 1.9 on admission. Likely prerenal secondary to dehydration. Creatinine has improved to 0.7. - continue IV fluid hydration - continue to monitor creatinine and strict I/O - avoid nephrotoxic agents Neurology: Anxiety Patient is on benzo for anxiety. Benzo held today. DVT ppx: ALPS, Heparin SQ Problem List: 1. DKA (diabetic ketoacidoses) 2. Streptococcal pharyngitis 3. Hypernatremia 4. ROBERTA (acute kidney injury) Pain Ratin Tomorrow's Labs & Rationales: cbc - infection bep - dka, hypernatremia Plan DVT/Prophylaxis: mechanical, pharmacological Harris Ta MD 06/07/17 1702: Attending MD Review Statement Attending Sign Off Attending Cosign Statement: I have: examined this patient, reviewed [employer] EMR data, personally reviewd images, discussd w/resident/PA/MACHINE OPERATOR ASSISTANT, discussed mgmt plan w/[place], discussed mgmt plan w/pt, agreed w/resident/PA/MACHINE OPERATOR ASSISTANT, amended to note. Other Findings: The patient was seen and discussed with house staff. Appreciate Endocrinology follow-up. On Zithromax for strep and nystatin for thrush. Off insulin drip. Na improved and nausea resolved. Started on long acting insulin. Agree with downgrade to general medicine service.
[2017-06-07 08:00] VITALS: BP 110/62
--- NOTE | 2017-06-07 11:10 | PN- Diabetes ---
Assessment/Plan Diabetes Assessment: 51 y/o female who was diagnosed with DM type 2 and abnormal TFT in 01/2017, was prescribed with metfomin. But she hasn't been compliance with the treatment, was having URI over past several days and was treated with antibiotics, and presented with DKA with glucose level of 691, Cr 1.9, HCO2 < 5, PH 7.01 and acetone positive at 1:16 dilution. She was on insulin drip and IVF overnight. Currently she is on D51/2 NS with 20 meq of KCL at 150 ml/hour, insulin drip at 4 units per hour. Her FSGs were 164 and 194. Plan: 1. DM/DKA-- most likley she has adult onset DM type 1-- SHERI 65 antibody and c- peptide levels are still pending. ---start Levemir 18 units twice a day with first dose stat; ---decrease D5 1/2 NS with 20 meq/KCL to 125 ml/hour; ---start Novolog coverage every 4 hours-- detail see the inpatient DM order ---start clear liquid diet w/o concentrated sweets; ---monitor FSGs; ---monitor electrolytes in the afternoon; ---please inform me if her IVF is changed or her meal plan is changed and then I will adjust her insulin regimen accordingly. 2. TFT is normal; anti TPO < 28 and anti Tg 492---consistent with Damaris's thyroiditis; --- monitor TFT in the future; ---obtain thyroid u.s as outpatient. will follow. Inpatient Diabetes Orders Every 4 Hours: Bolus Insulin: Novolog < 80 mg/dl: no coverage 80-100 mg/dl: no coverage 101-120 mg/dl: 4 units 121-150 mg/dl: 4 units 151-200 mg/dl: 6 units 201-250 mg/dl: 8 units 251-300 mg/dl: 10 units 301-350 mg/dl: 12 units 351-400 mg/dl: 14 units > 400 mg/dl: 16 units Subjective Subjective: She feels tired and doesn't have appetite. Objective Last 24 Hrs of Vital Signs/I&O Vital Signs Date Time Temp Pulse Resp B/P B/P Pulse O2 O2 Flow FiO2 Mean Ox Delivery Rate 06/07 0800 98.2 84 17 110/62 93 Room Air 06/07 0000 98.6 84 20 90/48 95 Room Air Room Air 06/06 1723 97.1 85 20 102/52 97 Room Air 06/06 1704 97.7 89 18 98/53 100 Room Air 06/06 1550 96 20 132/60 100 Room Air 06/06 1501 98.0 95 20 139/67 100 Room Air 06/06 1257 97.8 108 20 119/80 94 Room Air Room Air Intake & Output 06/07 1600 06/07 0800 04 0000 Intake Total 1438 1089 Output Total 700 400 Balance 738 689 Intake, IV 1238 789 Intake, Oral 200 300 Number 0 0 Bowel Movements Output, Urine 700 400 Patient 197 lb Weight Weight Bed scale Measurement Method Findings Pertinent Lab/Zack Results: Laboratory Tests 06/07 06/07 06/07 0345 0345 0010 Chemistry Sodium (137 - 145 mmol/L) 149 H 150 H Potassium (3.5 - 5.1 mmol/L) 3.5 3.8 Chloride (98 - 107 mmol/L) 119 H 121 H Carbon Dioxide (22 - 30 mmol/L) 16 L 14 L Anion Gap (5 - 16) 14 16 BUN (7 - 17 mg/dL) 38 H 38 H Creatinine (0.5 - 1.0 mg/dL) 0.8 0.8 Estimated GFR (>60 ml/min) > 60 > 60 Glucose (65 - 99 mg/dL) 147 H 229 H C-Peptide Pending Calcium (8.4 - 10.2 mg/dL) 9.8 9.3 Phosphorus (2.5 - 4.5 mg/dL) 2.5 2.4 L Magnesium (1.6 - 2.3 mg/dL) 2.3 2.3 Total Bilirubin (0.2 - 1.3 mg/dL) 0.5 0.6 AST (14 - 36 U/L) 14 16 ALT (9 - 52 U/L) 67 H 72 H Albumin (3.5 - 5.0 g/dL) 3.3 L 3.5 Triglycerides (<150 mg/dL) 371 H Cholesterol (<200 MG/DL) 303 H LDL Cholesterol, Calc (65 - 129 mg/dL) 188 H HDL Cholesterol (40 - 60 mg/dL) 41 Cholesterol/HDL Ratio (0.00 - 4.23 %) 7 H TSH (0.270 - 4.200 uIU/mL) 2.540 Free T4 (0.64 - 1.79 ng/dL) 0.72 Hematology CBC w Diff NO MAN DIFF REQ WBC (4.8 - 10.8 /CUMM) 13.8 H RBC (4.20 - 5.40 /CUMM) 4.36 Hgb (12.0 - 16.0 G/DL) 14.2 Hct (37 - 47 %) 41.8 MCV (81.0 - 99.0 FL) 95.7 MCH (27.0 - 31.0 PG) 32.5 H MCHC (33.0 - 37.0 G/DL) 34.0 RDW (11.5 - 14.5 %) 13.0 Plt Count (130 - 400 /CUMM) 221 MPV (7.4 - 10.4 FL) 9.9 Gran % (42.2 - 75.2 %) 70.8 Lymphocytes % (20.5 - 51.1 %) 18.7 L Monocytes % (1.7 - 9.3 %) 9.9 H Eosinophils % (0 - 5 %) 0.3 Basophils % (0.0 - 2.0 %) 0.3 Absolute Granulocytes (1.4 - 6.5 /CUMM) 9.8 H Absolute Lymphocytes (1.2 - 3.4 /CUMM) 2.6 Absolute Monocytes (0.10 - 0.60 /CUMM) 1.4 H Absolute Eosinophils (0.0 - 0.7 /CUMM) 0 Absolute Basophils (0.0 - 0.2 /CUMM) 0 Immunology Thyroglobulin Antibody (< 61 U/mL) 492 H Thyroid Peroxidase Ab (< 61 U/mL) < 28 SHERI Antibody Pending 06/06 06/06 06/06 06/06 2120 1745 1700 1640 Chemistry Sodium (137 - 145 mmol/L) 150 H 151 H Potassium (3.5 - 5.1 mmol/L) 3.8 3.6 Chloride (98 - 107 mmol/L) 120 H 117 H Carbon Dioxide (22 - 30 mmol/L) 11 L 9 *L Anion Gap (5 - 16) 18 H 25 H BUN (7 - 17 mg/dL) 33 H 32 H Creatinine (0.5 - 1.0 mg/dL) 0.9 1.2 H Estimated GFR (>60 ml/min) > 60 47 L Glucose (65 - 99 mg/dL) 223 H 410 H Lactic Acid (0.7 - 2.1 mmol/L) 1.7 Calcium (8.4 - 10.2 mg/dL) 8.3 L 9.0 Phosphorus (2.5 - 4.5 mg/dL) 2.0 L 2.6 Magnesium (1.6 - 2.3 mg/dL) 2.1 2.3 Total Bilirubin (0.2 - 1.3 mg/dL) 0.5 0.5 AST (14 - 36 U/L) 14 19 ALT (9 - 52 U/L) 65 H 71 H Albumin (3.5 - 5.0 g/dL) 2.8 L 3.5 Toxicology Urine Opiates Screen (>2000 NG/ML) < 100 Methadone Screen (>300 NG/ML) < 40 Barbiturate Screen (>200 NG/ML) < 60 Ur Phencyclidine Scrn (>25 NG/ML) < 6.00 Amphetamines Screen (>1000 NG/ML) < 100 U Benzodiazepines Scrn (>200 NG/ML) < 85 Urine Cocaine Screen (>300 NG/ML) < 50 Urine Cannabis Screen (>50 NG/ML) < 5.00 Urines Urinalysis LIGHT H Urine Color (YEL,AMB,STR) YEL Urine Clarity (CLEAR) CLEAR Urine pH (5.0 - 8.0) 6.0 Ur Specific [place] (1.001 - 1.035) 1.025 Urine Protein (NEG,<30 MG/DL) 100 H Urine Ketones (NEG) >=80 Urine Nitrite (NEG) NEG Urine Bilirubin (NEG) NEG@ICTO Urine Urobilinogen (0.1 - 1.0 EU/dl) 0.2 Ur Leukocyte Esterase (NEG) NEG Ur Microscopic SEDIMENT EXAMINED Urine RBC (0 - 5 /HPF) 3-5 Urine WBC (0 - 2 /HPF) 3-5 H Ur Epithelial Cells (NONE,FEW) MANY H Urine Bacteria (NEG/NONE) MANY H Hyaline Casts (0/LPF) 5-10 H Granular Casts (NONE /LPF) RARE H Urine Mucus (FEW,NONE) MANY H Urine Hemoglobin (NEG) MOD H Urine Glucose (N MG/DL) >=1000 H 06/06 06/06 06/06 1420 1403 1345 Blood Gas Bicarbonate Actual (22 - 26 MEQ/L) 6 L Mixed VBG pH (7.31 - 7.41 PH) 7.01 L Mixed VBG pCO2 (41 - 51 TORR) 22 L Mixed VBG O2 Saturation (35 - 45 TORR) 39 Carboxyhemoglobin (1.5 - 5.0 %) 1.4 L Coagulation D-Dimer High Sensitivty (0 - 243 ng/ml) 229 Cancelled 06/06 1329 Chemistry Sodium (137 - 145 mmol/L) 147 H Potassium (3.5 - 5.1 mmol/L) 4.5 Chloride (98 - 107 mmol/L) 105 Carbon Dioxide (22 - 30 mmol/L) < 5 *L Anion Gap (5 - 16) ND BUN (7 - 17 mg/dL) 31 H Creatinine (0.5 - 1.0 mg/dL) 1.9 H Estimated GFR (>60 ml/min) 28 L BUN/Creatinine Ratio (7 - 25 %) 16.3 Glucose (65 - 99 mg/dL) 691 *H Hemoglobin A1c (4.2 - 5.8 %) 13.7 H Lactic Acid (0.7 - 2.1 mmol/L) 3.4 H Calcium (8.4 - 10.2 mg/dL) 10.4 H Total Bilirubin (0.2 - 1.3 mg/dL) 0.7 AST (14 - 36 U/L) 32 ALT (9 - 52 U/L) 91 H Alkaline Phosphatase (<127 U/L) 143 H Troponin I (< 0.11 ng/ml) < 0.01 Total Protein (6.3 - 8.2 g/dL) 7.6 Albumin (3.5 - 5.0 g/dL) 4.6 Globulin (1.9 - 4.2 gm/dL) 3.0 Albumin/Globulin Ratio (1.1 - 2.2 %) 1.5 Hematology CBC w Diff MAN DIFF ORDERED WBC (4.8 - 10.8 /CUMM) 12.6 H RBC (4.20 - 5.40 /CUMM) 5.25 Hgb (12.0 - 16.0 G/DL) 16.8 H Hct (37 - 47 %) 50.8 H MCV (81.0 - 99.0 FL) 96.8 MCH (27.0 - 31.0 PG) 32.0 H MCHC (33.0 - 37.0 G/DL) 33.1 RDW (11.5 - 14.5 %) 13.4 Plt Count (130 - 400 /CUMM) 322 MPV (7.4 - 10.4 FL) 10.3 Gran % (42.2 - 75.2 %) 85.0 H Lymphocytes % (20.5 - 51.1 %) 8.9 L Monocytes % (1.7 - 9.3 %) 5.9 Eosinophils % (0 - 5 %) 0 Basophils % (0.0 - 2.0 %) 0.2 Absolute Granulocytes (1.4 - 6.5 /CUMM) 10.7 H Absolute Lymphocytes (1.2 - 3.4 /CUMM) 1.1 L Absolute Monocytes (0.10 - 0.60 /CUMM) 0.7 H Absolute Eosinophils (0.0 - 0.7 /CUMM) 0 Absolute Basophils (0.0 - 0.2 /CUMM) 0 Platelet Estimate (ADEQUATE) VERIFIED BY SMEAR Normocytic RBCs VERIFIED Normochromic RBCs VERIFIED Toxicology Acetone Level (NEGATIVE) POSITIVE AT 1:16 DIL
[2017-06-07 16:00] VITALS: BP 92/58
[2017-06-07 22:26] VITALS: BP 136/60
[2017-06-08 06:25] VITALS: BP 114/76
--- NOTE | 2017-06-08 07:03 | PN- Housestaff ---
Subjective Follow-up For: DKA-resolved Complaints: no complaints Subjective: Patient seen and examined at bedside. No overnight events. No complaints. Patient denied nausea, vomiting, chest pain, shortness of breath, abdominal pain. Upon further questioning her diagnosis of diabetes and her medication, patient lacks insight about her condition nor being complaint with her medications. Review of Systems Constitutional: Reports: no symptoms. Cardiovascular: Reports: no symptoms. Respiratory: Reports: no symptoms. Gastrointestinal: Reports: no symptoms. Genitourinary: Reports: no symptoms. Objective Last 24 Hrs of Vital Signs/I&O Vital Signs Date Time Temp Pulse Resp B/P B/P Pulse O2 O2 Flow FiO2 Mean Ox Delivery Rate 06/08 1356 97.0 74 18 128/80 94 Room Air 06/08 0931 80 114/78 04 0625 98.0 80 18 114/76 96 Room Air 06/07 2226 98.5 72 20 136/60 97 / 1600 98.3 77 20 92/58 94 Room Air Intake & Output 06/08 1600 06/08 0800 06/08 0000 Intake Total 960 1200 575 Output Total 100 Balance 960 1200 475 Intake, IV 600 1000 375 Intake, Oral 360 200 200 Number 0 Bowel Movements Output, Urine 100 Patient 202 lb Weight Weight Bed scale Measurement Method Physical Exam General Appearance: Alert, Oriented X3, Cooperative, No Acute Distress Cardiovascular: Regular Rate, Normal S1, Normal S2, No Murmurs Lungs: Clear to Auscultation Abdomen: Normal Bowel Sounds, Soft, No Tenderness, No Hepatospenomegaly Neurological: Strength at 5/5 X4 Ext, Normal Tone, Sensation Intact Current Medications: Current Medications Sig/[place] Start time Last Medication Dose Route Stop Time Status Admin Acetaminophen 1,000 MG Q6P PRN 06/06 1515 AC IV Azithromycin 250 MG DAILY 06/07 1449 AC 06/08 PO 0931 Heparin Sodium 5,000 UNIT Q8 06/06 2200 AC 06/08 (Porcine) SC 1307 Insulin Aspart 0 AC & AT BEDTIME 06/08 1200 AC 06/08 SC 1307 Insulin Aspart 0 Q4 06/07 0800 DC 06/08 SC 0535 Insulin Detemir 18 UNITS BID 06/07 1000 AC 06/08 SC 0932 Lorazepam 0.5 MG QAM 06/07 1000 AC PO Losartan Potassium 50 MG DAILY 04/02 1000 AC 06/08 PO 0931 Nicotine 7 MG DAILY 06/06 1915 AC 06/08 TOP 0931 Nystatin 5 ML 4 TIMES/DAY 06/07 1130 AC 06/08 PO 1307 Potassium Chloride 40 MEQ ONCE ONE 06/08 1115 DC 06/08 PO 06/08 1116 1307 Potassium Chloride 20 MEQ Q6 06/07 1800 DC 06/08 Dextrose/Sodium 1,000 ML IV 0513 Chloride Sodium Chloride 1,000 ML Q13H 06/08 0915 DC IV Last 24 Hrs of Lab/Zack Results Last 24 Hrs of Labs/Mics: Laboratory Tests 06/08/17 0640: Anion Gap 9, Estimated GFR > 60, BUN/Creatinine Ratio 58.0 H, CBC w Diff NO MAN DIFF REQ, RBC 3.97 L, MCV 94.5, MCH 33.0 H, MCHC 34.9, RDW 13.3, MPV 10.3, Gran % 56.9, Lymphocytes % 33.7, Monocytes % 7.7, Eosinophils % 1.4, Basophils % 0.3, Absolute Granulocytes 4.0, Absolute Lymphocytes 2.4, Absolute Monocytes 0.5 , Absolute Eosinophils 0.1, Absolute Basophils 0 06/08/17 0500: Sodium Cancelled, Potassium Cancelled, Chloride Cancelled, Carbon Dioxide Cancelled, Anion Gap Cancelled, BUN Cancelled, Creatinine Cancelled, Glucose Cancelled, Calcium Cancelled, Phosphorus Cancelled, Magnesium Cancelled, Total Bilirubin Cancelled, AST Cancelled, ALT Cancelled, Albumin Cancelled, CBC w Diff Cancelled, WBC Cancelled, RBC Cancelled, Hgb Cancelled, Hct Cancelled, MCV Cancelled, MCH Cancelled, MCHC Cancelled, RDW Cancelled, Plt Count Cancelled, MPV Cancelled Assessment/Plan Assessment: 51-year-old female with past medical history of hypertension, anxiety, recently diagnosed diabetes with hemoglobin A1c of 7, placed on metformin and abnormal thyroid function in January 2017, recently diagnosed with streptococcal pharyngitis 3 days ago presenting this admission with hyperglycemia found to be in diabetic ketoacidosis with serum acetone and blood sugar of greater than 500 on admission. Assessment and plan: 1. Diabetic ketoacidosis-patient came in with uncontrolled diabete ketoacidosis was in ICU for insulin drip. Anion gap closed and patient was switched to Levemir and sliding scale NovoLog. Patient is being followed by endocrinology. Patient sugar this morning to 226. We'll continue current management and discontinue IV fluids. We will follow-up with electrolytes and repeat as necessary. Patient lacks insight of 4 diabetes diagnosis/diet/medication complaints. We will place nutrition consult to help her with diabetes education , administration of insulin and complaints. We will also request nurse to educate her simultaneously. This admission patient had HbA1c is 13. Pending emily 65 and C-peptide level. 2. Damaris thyroiditis Patient has thyroglobulin antibody level of 492. Patient will be evaluated by Dr. weller as outpatient with possible ultrasound of her neck to rule out any multinodular goiter. 3. Hypernatremia Patient initially had hyponatremia secondary due to decreased by mouth intake. Today sodium 144. Will continue monitor her electrolytes. 4. Streptococcal pharyngitis Patient recently diagnosed with streptococcal pharyngitis and was started on Augmentin. Patient was noncompliant and just took only 2 doses of Augmentin. Hence, this admission she was started on azithromycin. Now she is on day 3 azithromycin and will continue for 2 more days. 5. Oral thrush Continue nystatin suspension Code-full code Diet-diabetic diet DVT prophylaxis-heparin Problem List: 1. DKA (diabetic ketoacidoses) 2. ROBERTA (acute kidney injury) 3. Hypernatremia 4. Streptococcal pharyngitis Pain Ratin Pain Location: None Pain Goal: Remain pain free Pain Plan: Tylenol Tomorrow's Labs & Rationales: cbc,bep
[2017-06-08 08:42] LABS: ABSOLUTE BASOPHIL COUNT 0 /CUMM (0.0-0.2); ABSOLUTE EOSINOPHIL COUNT 0.1 /CUMM (0.0-0.7); ABSOLUTE LYMPH COUNT 2.4 /CUMM (1.2-3.4); ABSOLUTE MONOCYTE COUNT 0.5 /CUMM (0.10-0.60); BASOPHIL % 0.3 % (0.0-2.0); EOSINOPHIL % 1.4 % (0-5); GRANULOCYTE % 56.9 % (42.2-75.2); HEMATOCRIT 37.5 % (37-47); MEAN CORPUSCULAR HGB CONC 34.9 G/DL (33.0-37.0); MEAN CORPUSCULAR VOLUME 94.5 FL (81.0-99.0); MEAN PLATELET VOLUME 10.3 FL (7.4-10.4); PLATELET COUNT 186 /CUMM (130-400); RBC DISTRIBUTION WIDTH 13.3 % (11.5-14.5); RED BLOOD CELL CT 3.97 /CUMM (4.20-5.40); WHITE BLOOD CELL COUNT 7.1 /CUMM (4.8-10.8)
--- NOTE | 2017-06-08 08:46 | PN- Diabetes ---
Assessment/Plan Diabetes Assessment: 51 y/o female who was diagnosed with DM type 2 and abnormal TFT in 01/2017, was prescribed with metfomin. But she hasn't been compliance with the treatment, was having URI over past several days and was treated with antibiotics, and presented with DKA with glucose level of 691, Cr 1.9, HCO2 < 5, PH 7.01 and acetone positive at 1:16 dilution. The insulin drip was discontinued. Currently she is on D51/2 NS with 20 meq of KCL at 75 ml/hour. She was put on Levemir 18 units twice a day and Novolog coverage every 4 hours. Her FSGs were 220, 185, 226 and 226. Most likley she has adult onset DM type 1-- SHERI 65 antibody and c-peptide levels are still pending. Her TFT is normal; anti TPO < 28 and anti Tg 492---consistent with Damaris's thyroiditis; Plan: 1. discontinue IVF; 2. oral K supplement; 3. encourage oral fluid intake; 4. continue Levemir 18 units twice a day; 5. stop Novolog coverage every 4 hours; 6. start Novolog coverage before meals and novolog coverage at bedtime; detail see the inpatient DM orders; 7. monitor FSGs; 8. nutrition consult/ DM education/ glucometer teaching and insulin injection teaching. 9. monitor electrolytets. Inpatient Diabetes Orders Before Each Meal: Bolus Insulin: Novolog < 80 mg/dl: no coverage 80-100 mg/dl: 4 units 101-120 mg/dl: 4 units 121-150 mg/dl: 4 units 151-200 mg/dl: 6 units 201-250 mg/dl: 8 units 251-300 mg/dl: 10 units 301-350 mg/dl: 12 units 351-400 mg/dl: 14 units > 400 mg/dl: 16 units Bedtime: Bolus Insulin: Novolog < 80 mg/dl: no coverage 80-100 mg/dl: no coverage 101-120 mg/dl: no coverage 121-150 mg/dl: no coverage 151-200 mg/dl: no coverage 201-250 mg/dl: 2 units 251-300 mg/dl: 3 units 301-350 mg/dl: 4 units 351-400 mg/dl: 5 units > 400 mg/dl: 6 units Subjective Subjective: She still feels thirsty. Objective Last 24 Hrs of Vital Signs/I&O Vital Signs Date Time Temp Pulse Resp B/P B/P Pulse O2 O2 Flow FiO2 Mean Ox Delivery Rate 06/08 0625 98.0 80 18 114/76 96 Room Air 06/07 2226 98.5 72 20 136/60 97 06/07 1600 98.3 77 20 92/58 94 Room Air Intake & Output 06/08 1600 06/08 0800 06/08 0000 Intake Total 1200 575 Output Total 100 Balance 1200 475 Intake, IV 1000 375 Intake, Oral 200 200 Output, Urine 100 Patient 202 lb Weight Weight Bed scale Measurement Method Findings Pertinent Lab/Zack Results: Laboratory Tests 06/08 06/08 06/07 0640 0500 1230 Chemistry Sodium (137 - 145 mmol/L) 144 Cancelled 146 H Potassium (3.5 - 5.1 mmol/L) 3.3 L Cancelled 4.1 Chloride (98 - 107 mmol/L) 113 H Cancelled 115 H Carbon Dioxide (22 - 30 mmol/L) 22 Cancelled 15 L Anion Gap (5 - 16) 9 Cancelled 16 BUN (7 - 17 mg/dL) 29 H Cancelled 33 H Creatinine (0.5 - 1.0 mg/dL) 0.5 Cancelled 0.7 Estimated GFR (>60 ml/min) > 60 > 60 BUN/Creatinine Ratio (7 - 25 %) 58.0 H Glucose (65 - 99 mg/dL) Cancelled 321 H Calcium (8.4 - 10.2 mg/dL) Cancelled 9.4 Phosphorus (2.5 - 4.5 mg/dL) Cancelled 2.2 L Magnesium (1.6 - 2.3 mg/dL) Cancelled 2.3 Total Bilirubin (0.2 - 1.3 mg/dL) Cancelled 0.5 AST (14 - 36 U/L) Cancelled 15 ALT (9 - 52 U/L) Cancelled 64 H Albumin (3.5 - 5.0 g/dL) Cancelled 3.0 L Hematology CBC w Diff NO MAN DIFF REQ Cancelled WBC (4.8 - 10.8 /CUMM) 7.1 Cancelled RBC (4.20 - 5.40 /CUMM) 3.97 L Cancelled Hgb (12.0 - 16.0 G/DL) 13.1 Cancelled Hct (37 - 47 %) 37.5 Cancelled MCV (81.0 - 99.0 FL) 94.5 Cancelled MCH (27.0 - 31.0 PG) 33.0 H Cancelled MCHC (33.0 - 37.0 G/DL) 34.9 Cancelled RDW (11.5 - 14.5 %) 13.3 Cancelled Plt Count (130 - 400 /CUMM) 186 Cancelled MPV (7.4 - 10.4 FL) 10.3 Cancelled Gran % (42.2 - 75.2 %) 56.9 Lymphocytes % (20.5 - 51.1 %) 33.7 Monocytes % (1.7 - 9.3 %) 7.7 Eosinophils % (0 - 5 %) 1.4 Basophils % (0.0 - 2.0 %) 0.3 Absolute Granulocytes (1.4 - 6.5 /CUMM) 4.0 Absolute Lymphocytes (1.2 - 3.4 /CUMM) 2.4 Absolute Monocytes (0.10 - 0.60 /CUMM) 0.5 Absolute Eosinophils (0.0 - 0.7 /CUMM) 0.1 Absolute Basophils (0.0 - 0.2 /CUMM) 0
--- NOTE | 2017-06-08 11:15 | PN- Att Addend ---
Attending Addendum Attending Brief Note Patient seen and examined, feels overall better than before. Denies any aches, pains. Started on solid diet. Vital Signs Date Time Temp Pulse Resp B/P B/P Pulse O2 O2 Flow FiO2 Mean Ox Delivery Rate 06/08 0931 80 114/78 06/08 0625 98.0 80 18 114/76 96 Room Air 06/07 2226 98.5 72 20 136/60 97 06/07 1600 98.3 77 20 92/58 94 Room Air on exam; aox3, nad. cv; s1, s2, rrr resp; clear abd; soft, nt, bs+ ext; no edema Laboratory Tests 06/08 06/08 06/07 0640 0500 1230 Chemistry Sodium (137 - 145 mmol/L) 144 Cancelled 146 H Potassium (3.5 - 5.1 mmol/L) 3.3 L Cancelled 4.1 Chloride (98 - 107 mmol/L) 113 H Cancelled 115 H Carbon Dioxide (22 - 30 mmol/L) 22 Cancelled 15 L Anion Gap (5 - 16) 9 Cancelled 16 BUN (7 - 17 mg/dL) 29 H Cancelled 33 H Creatinine (0.5 - 1.0 mg/dL) 0.5 Cancelled 0.7 Estimated GFR (>60 ml/min) > 60 > 60 BUN/Creatinine Ratio (7 - 25 %) 58.0 H Glucose (65 - 99 mg/dL) Cancelled 321 H Calcium (8.4 - 10.2 mg/dL) Cancelled 9.4 Phosphorus (2.5 - 4.5 mg/dL) Cancelled 2.2 L Magnesium (1.6 - 2.3 mg/dL) Cancelled 2.3 Total Bilirubin (0.2 - 1.3 mg/dL) Cancelled 0.5 AST (14 - 36 U/L) Cancelled 15 ALT (9 - 52 U/L) Cancelled 64 H Albumin (3.5 - 5.0 g/dL) Cancelled 3.0 L Hematology CBC w Diff NO MAN DIFF REQ Cancelled WBC (4.8 - 10.8 /CUMM) 7.1 Cancelled RBC (4.20 - 5.40 /CUMM) 3.97 L Cancelled Hgb (12.0 - 16.0 G/DL) 13.1 Cancelled Hct (37 - 47 %) 37.5 Cancelled MCV (81.0 - 99.0 FL) 94.5 Cancelled MCH (27.0 - 31.0 PG) 33.0 H Cancelled MCHC (33.0 - 37.0 G/DL) 34.9 Cancelled RDW (11.5 - 14.5 %) 13.3 Cancelled Plt Count (130 - 400 /CUMM) 186 Cancelled MPV (7.4 - 10.4 FL) 10.3 Cancelled Gran % (42.2 - 75.2 %) 56.9 Lymphocytes % (20.5 - 51.1 %) 33.7 Monocytes % (1.7 - 9.3 %) 7.7 Eosinophils % (0 - 5 %) 1.4 Basophils % (0.0 - 2.0 %) 0.3 Absolute Granulocytes (1.4 - 6.5 /CUMM) 4.0 Absolute Lymphocytes (1.2 - 3.4 /CUMM) 2.4 Absolute Monocytes (0.10 - 0.60 /CUMM) 0.5 Absolute Eosinophils (0.0 - 0.7 /CUMM) 0.1 Absolute Basophils (0.0 - 0.2 /CUMM) 0 A/P; 51 y/o F with pmh sig for hypertension, anxiety, recently diagnosed diabetes admitted with diabetic ketoacidosis. Patient was initially admitted to ICU was started on insulin drip. Now off of insulin drip and has been transferred to medicine floor. Also getting treated for strep throat. We'll complete a total of 5 day course of azithromycin. Patient has been seen by endocrinology. We will encourage by mouth intake and by mouth fluids. Will DC the IV fluids. We will replete her potassium. (I ordered Klor). Continue other current meds. DVT px; Hep sq. If blood sugars remain stable, possible discahrge home in next 24 hours. Pt encouraged to ambulate.
[2017-06-08 13:56] VITALS: BP 128/80
--- NOTE | 2017-06-08 15:28 | Patient Discharge Instructions ---
Discharge Instructions General Discharge Information You were seen/treated for: Diabetic ketoacidosis-resolved Watch for these problems: In case of nausea, vomiting, abdominal pain, loss of consciousness, high blood sugar, dizziness please go to the nearest emergency room Special Instructions: Please follow-up with your primary care provider and pole setter within 1-2 weeks of discharge. Please do thyroid function study in 2-3 months and and follow-up with pole setter. You might need an ultrasound neck to be done as outpatient as per endocrinology. Diet Continue normal diet: No Recommended Diet: Diabetic Activity Full Activity/No Limits: No Activity Self Limited: Yes Acute Coronary Syndrome Inclusion Criteria At DC or during hospital stay patient has or had the following: ACS DIAGNOSIS No Discharge Core Measures Meds if any: Prescribed or Continued at Discharge Meds if any: NOT Prescribed or Continued at Discharge Congestive Heart Failure Inclusion Criteria At DC or during hospital stay patient has or had the following: CHF DIAGNOSIS No Discharge Core Measures Meds if any: Prescribed or Continued at Discharge Meds if any: NOT Prescribed or Continued at Discharge Cerebrovascular accident Inclusion Criteria At DC or during hospital stay patient has or had the following: CVA/TIA Diagnosis No Discharge Core Measures Meds if any: Prescribed or Continued at Discharge Meds if any: NOT Prescribed or Continued at Discharge Venous thromboembolism Inclusion Criteria VTE Diagnosis No VTE Type NONE VTE Confirmed by (Test) NONE Discharge Core Measures - Per Current guidelines, there needs to be overlap - treatment for the first 5 days of Warfarin therapy. - If discharged on Warfarin prior to 5 days of - overlap therapy, the patient will need to be - assessed for post discharge needs including - *Post discharge parental anticoagulation - *Warfarin and/or parental anticoagulation education - *Follow up date to check INR post discharge At least 5 days overlap therapy as Inpatient No Meds if any: Prescribed or Continued at Discharge Note: Overlap Therapy is Warfarin and Anticoagulant Meds if any: NOT Prescribed or Continued at Discharge
[2017-06-08] MEDS ORDERED: NICOTINE PATCH1 EAC1 TOP (15:31)
[2017-06-08] MEDS ORDERED: AZITHROMYCIN250 M1 PO (15:31)
[2017-06-08 22:47] VITALS: BP 112/70
[2017-06-09 06:20] VITALS: BP 124/68
--- NOTE | 2017-06-09 07:28 | PN- Housestaff ---
Dennis WETZEL,Melody 06/09/17 0727: Subjective Follow-up For: Diabetic ketoacidosis-resolved Complaints: foul smelling urine Subjective: Patient seen and examined at bedside. No overnight events. She complains of foul-smelling urine since yesterday. She denies hematuria, dysuria, nausea, vomiting, abdominal pain, chest pain, shortness of breath. Review of Systems Constitutional: Reports: no symptoms. Cardiovascular: Reports: no symptoms. Respiratory: Reports: no symptoms. Gastrointestinal: Reports: no symptoms. Genitourinary: Reports: no symptoms. Musculoskeletal: Reports: no symptoms. Objective Last 24 Hrs of Vital Signs/I&O Vital Signs Date Time Temp Pulse Resp B/P B/P Pulse O2 O2 Flow FiO2 Mean Ox Delivery Rate 06/09 0839 70 128/70 06/09 0620 98.1 67 18 124/68 97 Room Air 06/08 2247 97.3 74 18 112/70 97 Room Air 06/08 1356 97.0 74 18 128/80 94 Room Air 06/08 0931 80 114/78 Intake & Output 06/09 1600 06/09 0800 06/09 0000 Intake Total 200 290 Output Total Balance 200 290 Intake, IV 10 Intake, Oral 200 280 Patient 201 lb Weight Weight Bed scale Measurement Method Physical Exam General Appearance: Alert, Oriented X3, Cooperative, No Acute Distress Cardiovascular: Normal S1, Normal S2, No Murmurs Lungs: Clear to Auscultation, Normal Air Movement Abdomen: Soft, No Tenderness, No Hepatospenomegaly Neurological: Normal Speech, Strength at 5/5 X4 Ext, Normal Tone, Sensation Intact Extremities: No Cyanosis, No Edema, Normal Pulses Current Medications: Current Medications Sig/[place] Start time Last Medication Dose Route Stop Time Status Admin Acetaminophen 1,000 MG Q6P PRN 06/06 1515 AC IV Azithromycin 250 MG DAILY 06/07 1449 AC 06/09 PO 0839 Heparin Sodium 5,000 UNIT Q8 06/06 2200 AC 06/09 (Porcine) SC 0602 Insulin Aspart 0 AC & AT BEDTIME 06/08 1200 AC 06/09 SC 1235 Insulin Detemir 18 UNITS BID 06/07 1000 AC 06/09 SC 0838 Lorazepam 0.5 MG QAM 06/07 1000 AC PO Losartan Potassium 50 MG DAILY 06/07 1000 AC 06/09 PO 0839 Nicotine 7 MG DAILY 06/06 1915 06/09 TOP 0840 Nystatin 5 ML 4 TIMES/DAY 06/07 1130 06/09 PO 0839 Patient Medication 1 ED ONE ONE 06/09 1215 DC 06/09 [facility] ED 06/09 1216 1235 Patient Medication 1 ED ONE ONE 06/08 1545 DC [facility] ED 06/08 1546 Polyethylene Glycol 17 GM DAILY 06/09 1000 06/09 PO 1234 Potassium Chloride 40 MEQ ONCE ONE 06/09 1130 DC 06/09 PO 06/09 1131 1235 Senna/Docusate Sodium 1 TAB BID 06/09 1000 AC 06/09 PO 1234 Last 24 Hrs of Lab/Zack Results Last 24 Hrs of Labs/Mics: Laboratory Tests 06/09/17 1150: Urine Color JEWELL, Urine Clarity CLEAR, Urine pH 6.5, Ur Specific [place] 1.025, Urine Protein TRACE H, Urine Ketones 15 H, Urine Nitrite NEG, Urine Bilirubin NEG@ICTO, Urine Urobilinogen 1.0, Ur Leukocyte Esterase NEG, Ur Microscopic SEDIMENT EXAMINED, Urine RBC 1-3, Urine WBC 3-5 H, Ur Epithelial Cells FEW, Urine Crystals 1+ [place] OX H, Urine Bacteria MOD H, Urine Mucus MANY H, Urine Hemoglobin NEG, Urine Glucose 100 H 06/09/17 0707: Anion Gap 11, Estimated GFR > 60, BUN/Creatinine Ratio 67.5 H, CBC w Diff NO MAN DIFF REQ, RBC 4.15 L, MCV 94.9, MCH 32.5 H, MCHC 34.3, RDW 12.9, MPV 10.3, Gran % 43.0, Lymphocytes % 46.6, Monocytes % 8.6, Eosinophils % 1.5, Basophils % 0.3, Absolute Granulocytes 2.6, Absolute Lymphocytes 2.8, Absolute Monocytes 0.5 , Absolute Eosinophils 0.1, Absolute Basophils 0 Assessment/Plan Assessment: 51-year-old female with past medical history of hypertension, anxiety, recently diagnosed diabetes with hemoglobin A1c of 7, placed on metformin and abnormal thyroid function in January 2017, recently diagnosed with streptococcal pharyngitis 3 days ago presenting this admission with hyperglycemia found to be in diabetic ketoacidosis with serum acetone and blood sugar of greater than 500 on admission. Assessment and plan: 1. Diabetic ketoacidosis-patient came in with uncontrolled diabete ketoacidosis was in ICU for insulin drip. Anion gap closed and patient was switched to Levemir and sliding scale NovoLog. Patient is being followed by endocrinology. Patient sugar this morning to 140. We'll continue current management. Patient able to eat and drink well. We will follow-up with electrolytes and repeat as necessary. Patient lacks insight of 4 diabetes diagnosis/diet/medication complaints. Nutrition consult placed to help her with diabetes education, administration of insulin and complaints. We will also request nurse to educate her simultaneously. This admission patient had HbA1c is 13. Pending emily 65 and C-peptide level. 2. Damaris thyroiditis Patient has thyroglobulin antibody level of 492. Patient will be evaluated by Dr. weller as outpatient with possible ultrasound of her neck to rule out any multinodular goiter. 3. Hypernatremia Patient initially had hypernatremia secondary due to decreased by mouth intake. Today sodium 143. Will continue monitor her electrolytes. Patient has hypokalemia. The same was replaced. We'll send her home with 4. Streptococcal pharyngitis Patient recently diagnosed with streptococcal pharyngitis and was started on Augmentin. Patient was noncompliant and just took only 2 doses of Augmentin. Hence, this admission she was started on azithromycin. Now she is on day 5 azithromycin and will need the antibiotic course today. 5. Oral thrush Continue nystatin suspension Plan-patient urine analysis pending. Once that is negative patient can be discharged home with follow-up with his primary care physician/nail sticker Problem List: 1. Hypernatremia 2. DKA (diabetic ketoacidoses) 3. Streptococcal pharyngitis Pain Ratin Pain Location: None Pain Goal: Remain pain free Pain Plan: Tylenol Tomorrow's Labs & Rationales: None Marilee Samaniego MD 06/09/17 1117: Attending MD Review Statement Attending Statement Attending MD Statement: examined this patient, discuss w/resident/PA/ENTRY LEVEL MANAGEMENT, agreed w/resident/PA/ENTRY LEVEL MANAGEMENT, reviewed EMR data (avail), discussed with nursing, discussed with case mgmt, amended to note Attending Assessment/Plan: Patient seen and examined, did not get a good sleep last night. Blood sugars are better. Vital Signs Date Time Temp Pulse Resp B/P B/P Pulse O2 O2 Flow FiO2 Mean Ox Delivery Rate 06/09 0839 70 128/70 04/04 0620 98.1 67 18 124/68 97 Room Air 06/08 2247 97.3 74 18 112/70 97 Room Air 06/08 1356 97.0 74 18 128/80 94 Room Air on exam; aox3, nad. cv; s1, s2, rrr resp; clear abd; soft, nt, bs+ ext; no edema. Laboratory Tests 06/09 0707 Chemistry Sodium (137 - 145 mmol/L) 143 Potassium (3.5 - 5.1 mmol/L) 3.3 L Chloride (98 - 107 mmol/L) 110 H Carbon Dioxide (22 - 30 mmol/L) 23 Anion Gap (5 - 16) 11 BUN (7 - 17 mg/dL) 27 H Creatinine (0.5 - 1.0 mg/dL) 0.4 L Estimated GFR (>60 ml/min) > 60 BUN/Creatinine Ratio (7 - 25 %) 67.5 H Hematology CBC w Diff NO MAN DIFF REQ WBC (4.8 - 10.8 /CUMM) 6.0 RBC (4.20 - 5.40 /CUMM) 4.15 L Hgb (12.0 - 16.0 G/DL) 13.5 Hct (37 - 47 %) 39.4 MCV (81.0 - 99.0 FL) 94.9 MCH (27.0 - 31.0 PG) 32.5 H MCHC (33.0 - 37.0 G/DL) 34.3 RDW (11.5 - 14.5 %) 12.9 Plt Count (130 - 400 /CUMM) 180 MPV (7.4 - 10.4 FL) 10.3 Gran % (42.2 - 75.2 %) 43.0 Lymphocytes % (20.5 - 51.1 %) 46.6 Monocytes % (1.7 - 9.3 %) 8.6 Eosinophils % (0 - 5 %) 1.5 Basophils % (0.0 - 2.0 %) 0.3 Absolute Granulocytes (1.4 - 6.5 /CUMM) 2.6 Absolute Lymphocytes (1.2 - 3.4 /CUMM) 2.8 Absolute Monocytes (0.10 - 0.60 /CUMM) 0.5 Absolute Eosinophils (0.0 - 0.7 /CUMM) 0.1 Absolute Basophils (0.0 - 0.2 /CUMM) 0 A/P: 51 y/o F with pmh sig for hypertension, anxiety, recently diagnosed diabetes admitted with diabetic ketoacidosis. Patient was initially admitted to ICU was started on insulin drip. Now off of insulin drip and has been transferred to medicine floor. Also getting treated for strep throat. A complete total of 5 day course of Cipro. This morning patient did complain of some burning and foul smelling urine. Will check a urinalysis/cx. Blood sugars are stable on current regimen. Patient has received insulin teaching. She is otherwise medically stable for discharge after we get the urine results back. Patient to follow up with Endo, PCP as outpateint. Counselled on medcication, physician follow up and keeping herself utd with the screenings compliance. Will replete K and give her couple of days supply to home with.
[2017-06-09 08:08] LABS: ABSOLUTE BASOPHIL COUNT 0 /CUMM (0.0-0.2); ABSOLUTE EOSINOPHIL COUNT 0.1 /CUMM (0.0-0.7); ABSOLUTE GRANULOCYTE CT 2.6 /CUMM (1.4-6.5); ABSOLUTE LYMPH COUNT 2.8 /CUMM (1.2-3.4); ABSOLUTE MONOCYTE COUNT 0.5 /CUMM (0.10-0.60); BASOPHIL % 0.3 % (0.0-2.0); EOSINOPHIL % 1.5 % (0-5); HEMATOCRIT 39.4 % (37-47); MEAN CORPUSCULAR HGB 32.5 PG (27.0-31.0); MEAN CORPUSCULAR HGB CONC 34.3 G/DL (33.0-37.0); MEAN CORPUSCULAR VOLUME 94.9 FL (81.0-99.0); MEAN PLATELET VOLUME 10.3 FL (7.4-10.4); PLATELET COUNT 180 /CUMM (130-400); RBC DISTRIBUTION WIDTH 12.9 % (11.5-14.5); RED BLOOD CELL CT 4.15 /CUMM (4.20-5.40)
--- NOTE | 2017-06-09 08:31 | Discharge Summary ---
Visit Information Visit Dates Admission Date: 06/06/17 Discharge Date: 06/09/17 Hospital Course Course Attending Physician: Marilee Samaniego MD Primary Care Physician: Jerald WETZEL,[facility] Hospital Course: 51-year-old female with past medical history of diabetes (non-compliant), ? abnormal thyroid hormones, hypertension, anxiety, currently being treated for streptococcal pharyngitis with amoxicillin is here after recording high blood sugar levels at home. According to the patient, in the past few days she was having sore throat and was diagnosed with streptococcal pharyngitis, initially being treated with Augmentin, which upset her stomach- heartburn, nausea but no vomiting, which was later suggested to amoxicillin which she did NOT take. She noted being very thirsty this past week and was drinking water a lot more than usual. She also admitted that she was noncompliant with her diabetes medication which is metformin. Her blood sugar numbers were more than 500 the day prior to admission, and she continued to feel worsening of her symptoms, that brought her to the emergency department today. She still had throat on the day of admission, pain on swallowing, but no hoarseness of voice. She denied fever, chills, chest pain, palpitation, shortness of breath, cough, leg swelling, dizziness, abdominal pain, changes in bowel or bladder habit although she said she got some yeast infection after starting the antibiotic for which she took a dose of Diflucan. Hospital course: Patient was admitted in intensive care unit for diabetic ketoacidosis requiring IV insulin drip. Patient's blood sugar improved well from 691 to 200s. Endocrinology was on board who suggested to discontinue IV insulin drip as her blood sugar was within the range and her anion gap closed. She was started on Levemir 18 units twice a day with NovoLog sliding scale insulin. Patient also had abnormal thyroid function with elevated thyroglobulin antibody level. Patient will follow Dr. weller as outpatient for follow-up ultrasound of the neck [in 1-2 weeks] and thyroid function test in about 2-3 months. Patient also had a diagnosis of streptococcal pharyngitis prior to admission. Patient was given Augmentin/amoxicillin by her primary care provider which the patient didn't use it regularly. Hence she was started on azithromycin and she completed 5 days antibiotic course. Patient educated well on how to use insulin, take diabetic diet, complaince with medications by the nutritional service, medical team, nurse. Patient sent home with flex pen Levemir 18 units twice a day and NovoLog sliding scale insulin.Please follow-up with CAD and 65 and C-peptide level when you have appointment with Dr. weller/primary care physician. Allergies: Coded Allergies: No Known Allergies (06/06/17) Pertinent Lab Results: cxr Unremarkable examination. abd &pelvis CT No acute intra-abdominal process is seen to explain the patient's symptoms. Probable sludge filled gallbladder. Disposition Summary Disposition Principal Diagnosis: type 2 diabetes Additional Diagnosis: yo's thyroiditis Streptococcal pharyngitis Discharge Disposition: home or self care Discharge Instructions General Discharge Information Code Status: Full Code Patient's Diet: diabetic diet Patient's Activity: as tolerated Follow-Up Instructions/Appts: Please follow up with PCP/senior business development analyst within 1-2 weeks of discharge. Medications at Discharge Discharge Medications: Stop taking the following medications: Amoxicillin (Amoxicillin) 500 MG CAPSULE ORAL As Directed Amoxicillin/Potassium Clav (Augmentin 875-125 Tablet) 875 MG-125 MG TABLET ORAL As Directed Metformin HCl (Metformin HCl ER) 500 MG TAB.ER.24H ORAL Every night Continue taking these medications: LORazepam (Ativan) 1 MG TAB 0.5 Tablet ORAL Every Morning Comments: NOT GIVEN IN THE HOSPITAL Olmesartan/Hydrochlorothiazide (Benicar Hct 20-12.5 MG Tablet) 20 MG-12.5 MG TABLET 1 Tablet ORAL DAILY Comments: NOT GIVEN IN THE HOSPITAL Atorvastatin Calcium (Atorvastatin Calcium) 20 MG TABLET 1 Tablet ORAL DAILY Comments: NOT GIVEN IN THE HOSPITAL Start taking the following new medications: Insulin Detemir (Levemir Flextouch) 100 UNIT/ML (3 ML) INSULN.PEN 18 Units Inject into fatty tissue TWICE DAILY Qty = 1 Refills = 3 Instructions: . Comments: Last Taken: 06/09/17 Time: 0830AM Insulin Aspart, Recombinant (Novolog Flexpen) 100 UNIT/ML INSULN.PEN 0 Inject into fatty tissue SEE SLIDING SCALE Qty = 1 Refills = 3 Instructions: .less than 80-initiate hypoglycemia 80-100-4 unit 100-150-4 unit 151-200-6 unit 201-250-8 unit 251-300-8 unit 301-350-12 unit 351-400-14 unit > 400-16 units and call M.D. Comments: 6 units given 06/09/17 @ 1235 PM Potassium Chloride (Klor-Con) 20 MEQ PACKET 1 Packet ORAL DAILY Qty = 4 No Refills Instructions: . Comments: Last Taken: 06/09/17 Time: 1PM Nicotine (Nicotine Patch) 7 MG/24 HOUR PATCH.TD24 7 Milligram On the skin DAILY Qty = 30 No Refills Instructions: . Comments: Last Taken: 06/09/17 Time: 840 AM Azithromycin (Azithromycin) 250 MG TABLET 250 Milligram ORAL DAILY Qty = 1 No Refills Instructions: . Comments: Last Taken: 06/09/17 Time: 840 AM Copies To: Jerald WETZEL,[facility]; Chung WETZEL,Baljit
--- NOTE | 2017-06-09 08:32 | PN- Student ---
Subjective Subjective: Mrs. Medina reports no overnight events, denies any chest pain, fever, shortness of breath or n/v. However she does report some difficulty sleeping last night and had broken sleep from 11:30 pm until the early hours this am. She also states that her lightheadedness has improved and had her first BM last night since prior to admission on 06/06/17. She is urinating frequently but noticed an unusual odor when urinating and some slight burning, she denies any itchiness. She reports having a yeast infection the prior week and was treated with a single dose of PO Diflucan on 06/03/17. She is scheduled for discharge later today. PMHx: Signigicant for HTN treated with Benicar 25 mg PO and Hydrochlorathiazide 12.5 mg PO daily for 2-3 years. Anxiety x20 years, which is associated with work environment, treated with Lorazapam 0.5 mg PO in the am on workdays only. Diabetes Melituis diagnosed 01/2017, for which she was noncompliant with metformin PO therapy 500 mg Q PM. No prior hospitalizations other than childbirth 15 years ago. 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 Delivered a healthy female, patient reports her daughter weighed almost 9 lbs at . LMP was prior to of her only daughter 15 years ago. Social: , living with and daughter. 15 pack year history, wants to quit and has not had cravings since being in the hospital with the aid of nicotine patch. Social drinker on rare occasions (holidays) will have 1 glass of wine. Denies use of any illicit drugs. 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 Family Hx: Mother: age 68- [place], Premature menopause approx. age 37 Father: age 72- stroke, T2DM, HTN Maternal Grandmother: unknown Maternal Grandfather: age 69-[place], HTN Paternal Grandmother: unknown age, DM Paternal Grandfather: unknown age, DM Screening: -Last flu shot 12/2015 -Colonscopy: never -Mamography: never -Last Pap: approx. 8 years ago, normal -Does regular self breast exams-weekly -Wears seatbelt when in automobile -Denies any firearms in the household Review of Systems Review of Systems Constitutional: Denies: fever, weakness. EENTM: Denies: visual changes, ear pain. Cardiovascular: Denies: chest pain. Respiratory: Denies: short of breath. GI: Reports: see HPI. Genitourinary: Reports: see HPI. Neurological/Psychological: Reports: anxiety. Hematologic/Endocrine: Reports: polydipsia. Denies: polyuria. Objective Objective: Intake & Output 06/09 1600 06/09 0800 06/09 0000 Intake Total 200 290 Output Total Balance 200 290 Intake, IV 10 Intake, Oral 200 280 Patient 201 lb Weight Weight Bed scale Measurement Method Current Medications Sig/[place] Start time Last Medication Dose Route Stop Time Status Admin Acetaminophen 1,000 MG Q6P PRN 06/06 1515 AC IV Azithromycin 250 MG DAILY 06/07 1449 AC 06/08 PO 0931 Heparin Sodium 5,000 UNIT Q8 06/06 2200 AC 06/09 (Porcine) SC 0602 Insulin Aspart 0 AC & AT BEDTIME 06/08 1200 AC 06/08 SC 1715 Insulin Aspart 0 Q4 06/07 0800 DC 06/08 SC 0535 Insulin Detemir 18 UNITS BID 06/07 1000 AC 06/08 SC 2108 Lorazepam 0.5 MG QAM 06/07 1000 AC PO Losartan Potassium 50 MG DAILY 06/07 1000 AC 06/08 PO 0931 Nicotine 7 MG DAILY 06/06 1915 AC 06/08 TOP 0931 Nystatin 5 ML 4 TIMES/DAY 06/07 1130 AC 06/08 PO 2107 Patient Medication 1 ED ONE ONE 06/08 1545 DC Teaching ED 06/08 1546 Potassium Chloride 40 MEQ ONCE ONE 06/08 1115 DC 06/08 PO 06/08 1116 1307 Potassium Chloride 20 MEQ Q6 06/07 1800 DC 06/08 Dextrose/Sodium 1,000 ML IV 0513 Chloride Sodium Chloride 1,000 ML Q13H 06/08 0915 DC IV Laboratory Tests 06/09 0707 Chemistry Sodium Pending Potassium Pending Chloride Pending Carbon Dioxide Pending Anion Gap Pending BUN Pending Creatinine Pending BUN/Creatinine Ratio Pending Hematology CBC w Diff NO MAN DIFF REQ WBC (4.8 - 10.8 /CUMM) 6.0 RBC (4.20 - 5.40 /CUMM) 4.15 L Hgb (12.0 - 16.0 G/DL) 13.5 Hct (37 - 47 %) 39.4 MCV (81.0 - 99.0 FL) 94.9 MCH (27.0 - 31.0 PG) 32.5 H MCHC (33.0 - 37.0 G/DL) 34.3 RDW (11.5 - 14.5 %) 12.9 Plt Count (130 - 400 /CUMM) 180 MPV (7.4 - 10.4 FL) 10.3 Gran % (42.2 - 75.2 %) 43.0 Lymphocytes % (20.5 - 51.1 %) 46.6 Monocytes % (1.7 - 9.3 %) 8.6 Eosinophils % (0 - 5 %) 1.5 Basophils % (0.0 - 2.0 %) 0.3 Absolute Granulocytes (1.4 - 6.5 /CUMM) 2.6 Absolute Lymphocytes (1.2 - 3.4 /CUMM) 2.8 Absolute Monocytes (0.10 - 0.60 /CUMM) 0.5 Absolute Eosinophils (0.0 - 0.7 /CUMM) 0.1 Absolute Basophils (0.0 - 0.2 /CUMM) 0 Vital Signs Date Time Temp Pulse Resp B/P B/P Pulse O2 O2 Flow FiO2 Mean Ox Delivery Rate 06/10 619 98.1 67 18 124/68 97 Room Air 06/087 97.3 74 18 112/70 97 Room Air 06/08 1356 97.0 74 18 128/80 94 Room Air 06/08 0931 80 114/78 Intake & Output 06/09 1600 06/09 0806/09 0000 Intake Total 200 290 Output Total Balance 200 290 Intake, IV 10 Intake, Oral 200 280 Patient 201 lb Weight Weight Bed scale Measurement Method Overnight finger sticks in the 170s mg/dl via glucometer f/s this am 140 mg/dl tested by glucometer Exam & Diagnostic Data Last 24 Hrs of Vital Signs/I&O Vital Signs Date Time Temp Pulse Resp B/P B/P Pulse O2 O2 Flow FiO2 Mean Ox Delivery Rate 06/09 0620 98.1 67 18 124/68 97 Room Air 06/08 2247 97.3 74 18 112/70 97 Room Air 04 1356 97.0 74 18 128/80 94 Room Air 06/08 0931 80 114/78 Intake & Output 04/04 1600 04/04 0800 04/ 0000 Intake Total 200 290 Output Total Balance 200 290 Intake, IV 10 Intake, Oral 200 280 Patient 201 lb Weight Weight Bed scale Measurement Method Physical Exam General Appearance: no apparent distress, alert, awake, comfortable Ears, Nose, Throat: normal pharynx (no tonsillar exudate/elargemen) Neck: supple (no lymphadenopathy/tenderness), thyromegaly Respiratory: normal breath sounds, lungs clear Cardiovascular: regular rate/rhythm (No mumurs, rubs or gallops) Gastrointestinal: normal bowel sounds, soft, non-tender Neurologic/Psych: no motor/sensory deficits, normal gait (no visual field deficits ) Reflexes: 2+: bicep (R), bicep (L), knee (R), knee (L), ankle (R), ankle (L). Assessment/Plan Assessment: Mrs. Medina is a 51 year old female with a pmh of DM, HTN and Anxiety. She presented to ED on 06/06/17 with n/v x 2 days, polyuria and polydipsia x12 days, and found to be in DKA with a blood glucose of 691 mg/dl. She was admitted to ICU and remained on insulin drip until glucose levels stabilized and was transfered to the floor on 06/07/17. Since that time her glucose level has come down to the 170s and most recent f/s was 140 mg/dl. Mrs. Medina states her symptoms have improved and is now finally begining to have an appetite. She was also being treated for an ongoing bacterial pharyngitis since Wednesday06/01/[address] Marques. The patient states she was prescribed Augmentin which led to GI upset and after 2 days stopped the Augmentin and began taking Amoxicillin which she happen to have in the house. She was taking Amoxicillin 500 mg BID x2days and continued to have GI symptoms and stopped the Amoxicillin. She has been tolerating in house Azithromycin 250 mg PO daily. However today she states that she noticed a strange scent to her urine and slight burning on urination. She reports that she had also been experiencing symptoms of a Yeast infection the week prior after starting abx for the pharyngitis and was treated with a single dose of Diflucan on 06/03/17. We also discussed her past medical history and she has not had a pmd for close to 30 years. In that time period she reports that after the of her daughter 15 years ago she did not resume a normal menstural cycle. During that time period she also noticed thinning of her hair, periodic bouts of constipation, and increasing fatigue in particular over the past 1 year. We also discussed the importance of follow up with her pmd on these ongoing problems, and also the importance of screening for colon cancer, mamography and pap smear. We also talked about the possibility of utilizing cologaurd if she had reservations about having a colonoscopy done, the importance of quiting smoking to further reduce her risk of cvd, and also management of DM with frequent blood glucose checks, medication adherance and f/u with pmd/endocrinology. An attempt to reach Dr. Marques (her pmd) was made this morning 06/09/17, however his office is closed today. Plan: Problem List: 1. DKA 2. Bacterial Pharyngitis 3. Urinary tract burning/odor 4. Constipation 5. Hypothyroidism 6. Secondary Amenorrhea 7. HTN 8. Anxiety #DKA: Patient presented with polyuria/polydipsia, elevated blood glucose levels and n/v. After administration of insulin drip and followed by insulin sliding scale she has steadily improved with most recent f/s being 140 mg/dL. Potasium per chemistry panel drawn earlier today indicates low potassium at 3.3. This can be supplemented with oral potassium supplement. She is stable to be discharged today. Endocrinology was consulted and the patient will f/u once discharged. -continue short acting insulin therapy on sliding scale and long acting insulin (levemir) 18 units BID, daily -Potassium PO -continue to monitor BG levels regularly -obtain nutrition consult #Bacterial Pharyngitis: Patient reports having redness, swelling and exudates present over posterior pharynx 1 week ago, most likely due to streptococcal infection. Noncompliant with abx therapy due to GI disturbance, however has been compliant in house with Azithromycin treatment. On examination the oral pharynx was not erythematous, or show signs of exudates or tonsillar enlargement. -complete course of Azithromycin treatment (1 more day of 250 mg PO) #Urinary tract burining/odor: Patient reports previous yeast infection following abx therapy 1wk ago which was treated with Diflucan. However she is currently experiencing some slight burning and foul odor while urinating currently. Due to the burning and foul odor it is possible she has developed a UTI or was experiencing another fungal infection. However, U/A indicating that there was no acute infection. Advised patient to monitor and if symptoms worsen and do not improve to f/u with pmd. -Urinalysis ordered -f/u with pmd if symptoms do not improve #Constipation: Patient reports having a small BM for the first time since prior to admission last night. Along with the history of periodic bouts of constipation in the past Mrs. Medina may benefit from a diet with increased fiber and addition of a stool softner. This also may be related to her Hypothyroidism and may benefit from pharmacologic supplementation. She would also benefit from colonoscopy to determine if there is some anatomical obstruction due to polyps or malignancy. Although she has not reported any noticable blood in her stools she may not notice if it is an issue earlier along the GI tract. -Mirolax -Increase fiber in diet -Consider low dose Levothyroxine -Colonoscopy #Hypothyroidism: Mrs. Medina has a histor of abnormal TFTs in 01/2017 as well as indicating ab against Thyroglobulin. She also reports symptoms of hair loss, secondary amenorrhea, and periodic constipation. On physical exam slight thyromegaly was noted and these symptoms may be related to her untreated hypothyroid state due to Damaris's Thyroiditis. -f/u with endocrinology/pmd -ultrasound of the thyroid gland -f/u TFTs -consider low dose Levothyroxine therapy #Secondary Amenorrhea: The patient reports premature menopause at the age of 36 immediately following the of her daughter 15 years ago. During that time she has experienced signs and symptoms of Hypothyroidism which may be due to her having underlying Damaris's Thyroiditis following . This also may be due to undiagnosed DM as if she had a long standing HbA1C of >7% this may have affected her menses. However this is unlikley as she was screened for Gestational DM and was negative. This also may be due to complications related to , such as Pituitary Apoplexy secondary to hemorrhage. Considering she reports her child weighed >8.8 lbs at the time of and she was not able breastfeed her daughter.However she does not recall any event or complications during or immediately after the of her daughter it is possible to consider Antione's Syndrome. Lastly due to her impaired insulin function, although we suspect T1DM (pending SHERI antibody confirmation) PCOS could also be responsible for the changes in altered menstural cycle. Although the patient is over the age of 50 the fact that she has had 15 years of no menses warrants further investigation. -continue to take insulin and monitor finger stick glucose daily -consider levothyroxine therapy -Consider testing Estrogen levels and FSH/LH due to premature menopause due to increase risk of osteoprosis -Bone density scan consider early screening -If DM management and levothyroxine fail, consider testing ACTH, TSH and maybe MRI of the brain if suspecting Pituitary involvement -transvaginal ultrasound to evaluate for PCOS if all other negative #HTN: Patient has a history of hypertension, however has had stable blood pressure during her time on the floor. She is currently taking Losartan 50 mg PO daily and has been since 06/07/17. Prior to hospitalization she was taking Benicar 25 mg and Hydrochlorathiazide 12.5 mg PO daily. There was also evidence of protein spilling into her urine via U/A which is likely due to the uncontrolled DM which would benefit from treatment of an ACEI or ARB. -Maintain Losartan 50 mg PO once daily post discharge with consideration for HTN and additive kidney function protection #Anxiety: Patient reports anxiety, especially when at work due to high work load and nature of her work. She states that she only takes Lorazepam on work days, however she has been recieving it during her hospital stay as she has reported feeling anxious during her time here. -Continue Lorazepam 0.5 mg Q daily PRN -f/u with psych/pmd for anxiety DVT ppx: Heparin 5000 units Q8 SC Diet: Solid foods, ADA Code status: full code
--- NOTE | 2017-06-09 09:13 | PN- Diabetes ---
Assessment/Plan Diabetes Assessment: 51 y/o female who was diagnosed with DM type 2 and abnormal TFT in 01/2017, was prescribed with metfomin. But she wasn't compliance with the treatment, was admitted for DKA with glucose level of 691, Cr 1.9, HCO2 < 5, PH 7.01 and acetone positive at 1:16 dilution. The insulin drip was discontinued. Currently she is on Levemir 18 units twice a day and Novolog coverage before mealsd and Novolog coverage at bedtime. Her FSGs were 174, 175 and 140. Most likley she has adult onset DM type 1-- SHERI 65 antibody and c-peptide levels are still pending. Her TFT is normal; anti TPO < 28 and anti Tg 492---consistent with Damaris's thyroiditis; Plan: continue the current insulin regimen for now; replete K; monitor electrolytes. if she is medically stable for discharge, the discharge plan for DM ---Levemir 18 units twice a day; ---Current Novolog coverage before meals; ---monitor FSGs x 4 times a day Damaris's thyroiditis ---monitor TFT in 2-3 months; ---obtain thyroid u.s as outpatient; f/u in office after discharge. Subjective Subjective: She feels better this morning. Objective Last 24 Hrs of Vital Signs/I&O Vital Signs Date Time Temp Pulse Resp B/P B/P Pulse O2 O2 Flow FiO2 Mean Ox Delivery Rate 06/09 0839 70 128/70 06/09 0620 98.1 67 18 124/68 97 Room Air 06/08 2247 97.3 74 18 112/70 97 Room Air 06/08 1356 97.0 74 18 128/80 94 Room Air 06/08 0931 80 114/78 Intake & Output 06/09 1600 06/09 0800 06/09 0000 Intake Total 200 290 Output Total Balance 200 290 Intake, IV 10 Intake, Oral 200 280 Patient 201 lb Weight Weight Bed scale Measurement Method Findings Pertinent Lab/Zack Results: Laboratory Tests 06/09 0707 Chemistry Sodium (137 - 145 mmol/L) 143 Potassium (3.5 - 5.1 mmol/L) 3.3 L Chloride (98 - 107 mmol/L) 110 H Carbon Dioxide (22 - 30 mmol/L) 23 Anion Gap (5 - 16) 11 BUN (7 - 17 mg/dL) 27 H Creatinine (0.5 - 1.0 mg/dL) 0.4 L Estimated GFR (>60 ml/min) > 60 BUN/Creatinine Ratio (7 - 25 %) 67.5 H Hematology CBC w Diff NO MAN DIFF REQ WBC (4.8 - 10.8 /CUMM) 6.0 RBC (4.20 - 5.40 /CUMM) 4.15 L Hgb (12.0 - 16.0 G/DL) 13.5 Hct (37 - 47 %) 39.4 MCV (81.0 - 99.0 FL) 94.9 MCH (27.0 - 31.0 PG) 32.5 H MCHC (33.0 - 37.0 G/DL) 34.3 RDW (11.5 - 14.5 %) 12.9 Plt Count (130 - 400 /CUMM) 180 MPV (7.4 - 10.4 FL) 10.3 Gran % (42.2 - 75.2 %) 43.0 Lymphocytes % (20.5 - 51.1 %) 46.6 Monocytes % (1.7 - 9.3 %) 8.6 Eosinophils % (0 - 5 %) 1.5 Basophils % (0.0 - 2.0 %) 0.3 Absolute Granulocytes (1.4 - 6.5 /CUMM) 2.6 Absolute Lymphocytes (1.2 - 3.4 /CUMM) 2.8 Absolute Monocytes (0.10 - 0.60 /CUMM) 0.5 Absolute Eosinophils (0.0 - 0.7 /CUMM) 0.1 Absolute Basophils (0.0 - 0.2 /CUMM) 0
[2017-06-09] MEDS ORDERED: LEVEMIR100 UNIT/1 SC (10:39)
[2017-06-09] MEDS ORDERED: NOVOLOG100 UNIT/2 SC (10:39)
[2017-06-09] MEDS ORDERED: AZITHROMYCIN250 M1 PO ×2 (10:39→13:28)
[2017-06-09] MEDS ORDERED: NOVOLOG FL100 UNIT/1 SC ×3 (10:45→13:28)
[2017-06-09] MEDS ORDERED: LEVEMIR FL100 UNIT/1 SC ×2 (10:45→13:28)
[2017-06-09] MEDS ORDERED: KLOR-CON20 ME1 PO ×2 (11:46→13:28)
[2017-06-09] MEDS ORDERED: NICOTINE PATCH1 EAC1 TOP (13:28)
[2017-06-09 14:00] VITALS: BP 120/68
== END 2017-06-09 15:38 | DRG 638 ==
LOC: ERH 12:55 → 2NA 14:56 → CRI 14:56 → ERHI 14:56 → ENRESERV 16:04 → ENTRNSPT 16:56 → EDTRNSPT 17:00 → EDTRNSPTSTS 17:00 → CRI 17:10 → CMPTRNSPT 17:25 → CRI 06-07 11:23 → DELTRNSPT 06-07 20:11 → ENTRNSPT 06-07 20:12 → EDTRNSPT 06-07 20:32 → CMPTRNSPT 06-07 21:02 → EDTRNSPT 06-07 21:02 → 2NA 06-07 21:09 → ENPENDDIS 06-09 14:26 → 2NA 06-09 15:38
PROVIDERS: Dermatology; Physician Assistant; Student in an Organized Health Care Education/Training Program
DX: E11.10 Type 2 diabetes mellitus with ketoacidosis without coma (principal); N17.9 Acute kidney failure, unspecified; E87.0 Hyperosmolality and hypernatremia; J02.0 Streptococcal pharyngitis; Z91.14 Patient's other noncompliance with medication regimen; E06.3 Autoimmune thyroiditis; F41.9 Anxiety disorder, unspecified; Z79.84 Long term (current) use of oral hypoglycemic drugs; I12.9 Hypertensive chronic kidney disease with stage 1 through stage 4 chronic kidney disease, or unspecified chronic kidney disease; E86.0 Dehydration; B37.9 Candidiasis, unspecified; K59.00 Constipation, unspecified; N91.1 Secondary amenorrhea
CPT/HCPCS: 2NAP; 83519; CCU; 36415; 36592; 71045; 74176; 80307; 81001; 82436; 86376; 86800; 87040; 87070; 87086; 93005; 93010; 96361; 96374; 96375; 99291; J0131; J0456; J1644; J1815; J2405; J3480; J3490; J7042